=== PATIENT | female | born 1990 | race Caucasian/White ===

== ENCOUNTER → 2016-12-16 | Outpatient (CLI) | payer MEDICAID | END | disposition home or self-care (01) | LOC: MW.CHOBGYN 13:45 | PROVIDERS: ATTEND Advanced Practice Midwife | DX: L29.8 Other pruritus (principal) | CPT/HCPCS: 87480; 87510; 87660 ==

== ENCOUNTER → 2017-01-09 | Outpatient (CLI) | payer MEDICAID | END | disposition home or self-care (01) | LOC: MW.CHOBGYN 11:09 | PROVIDERS: ATTEND Advanced Practice Midwife | DX: Z34.90 Encounter for supervision of normal pregnancy, unspecified, unspecified trimester (principal) | CPT/HCPCS: 36415; 82950; 85027; 86850 ==

== ENCOUNTER 2017-01-16 17:59 | Outpatient (CLI) | payer MEDICAID ==
[2017-01-16] MEDS ORDERED: Acetaminophen 500 MG Tab PO ONE (18:18)
== END 2017-01-16 20:10 | disposition home or self-care (01) ==
LOC: MW.OBCHECK 17:59 → MW.OB 18:12 → MW.OBCHECK 20:10
PROVIDERS: ATTEND Obstetrics & Gynecology
DX: O99.89 Other specified diseases and conditions complicating pregnancy, childbirth and the puerperium (principal); R10.13 Epigastric pain; Z3A.29 29 weeks gestation of pregnancy
CPT/HCPCS: 59025; 81003; A9270

== ENCOUNTER → 2017-02-06 | Outpatient (CLI) | payer MEDICAID ==
--- NOTE | 2017-02-06 14:03 | US ---
Examination: Greater than 14 weeks transabdominal ultrasound with color Doppler and M-mode evaluatio n. HISTORY: Hydronephrosis FINDINGS: LMP is 06/24/2016 EVALUATION: Posterior placenta with a cephalic lie and grade 2. Visually amniotic fluid is wit hin normal limits. Amniotic fluid appears normal. Three-vessel cord is seen. The kidneys appear normal. BIOMETRY AND GESTATIONAL AGE: Biparietal diameter 8 cm. The abdominal circumference of 27.3 cm. The femoral length is 6.3 cm with head circumference of 20.5 cm. Gestational age is 31 weeks and 6 days. The expected date of delivery is approximately 04/04/2017. Fetus weight is 1839 grams. Overall the fetus is within the 21st percen tile. IMPRESSION: 1. Single active IU with cephalic fetus. Posterior placenta with grade 2, no placenta prev ia. 2. The kidneys appear unremarkable.
== END ==
LOC: MW.US 10:09
PROVIDERS: ATTEND Advanced Practice Midwife
DX: O26.833 Pregnancy related renal disease, third trimester (principal); N13.30 Unspecified hydronephrosis; Z3A.31 31 weeks gestation of pregnancy
CPT/HCPCS: 76815-26; 76816

== ENCOUNTER 2017-04-05 05:02 | Inpatient (IN) | payer MEDICAID ==
[2017-04-05] MEDS ORDERED: Oxytocin/Lactated Ringers 30 UNIT/500 ML BAG IV SCH ×2 (16:15)
[2017-04-05] MEDS ORDERED: Water For Irrigation,Sterile 1,000 ML Container IRR PRN (16:15)
[2017-04-05] MEDS ORDERED: Methylergonovine 0.2 MG/1 ML Amp IM PRN (16:15)
[2017-04-05] MEDS ORDERED: Carboprost Tromethamine 250 MCG/1 ML Amp IM PRN (16:15)
[2017-04-05] MEDS ORDERED: Sodium Chloride 0.9% 2.5 ML Syringe FLUSH PRN (16:15)
[2017-04-05] MEDS ORDERED: Lidocaine 1% 50 ML MDV INJECT PRN (16:15)
[2017-04-05] MEDS ORDERED: Misoprostol 200 MCG Tab PO PRN (16:15)
[2017-04-05] MEDS ORDERED: Sodium Chloride 0.9% 10 ML Syringe FLUSH PRN (16:15)
[2017-04-05] MEDS ORDERED: Terbutaline 1 MG/ML SDV SUBCUT PRN (16:15)
[2017-04-05] MEDS ORDERED: Nalbuphine 10 MG/1 ML Vial IVPUSH PRN (16:15)
[2017-04-05] MEDS: Lactated Ringers 1,000 ML IV SCH ×2 (17:30→23:50)
--- NOTE | 2017-04-05 17:58 | PCM.LDHP ---
L&D History of Present Illness - General Date of Service: 04/05/17 Admit Problem/Dx: Patient Status Order with Admit Dx/Problem 04/05/17 16:15 Patient Status [ADT] Routine Admission Diagnosis/Problem Admission Diagnosis/Problem 04/05/17 17:56 A: 26 yo EDC 03/31/2017 40 5/7wks O+, RI, GBS neg. 2/70/-2 soft midline. Source of Information: Patient History Limitations: Reports: No Limitations - History of Present Illness Improves with: Reports: None Worsens with: Reports: None Associated Symptoms: Reports: N - Related Data Allergies/Adverse Reactions: Allergies Allergy/AdvReac Type Severity Reaction Status Date / Time amoxicillin Allergy Rash Verified 03/15/16 09:25 Penicillins Allergy Rash Verified 03/15/16 09:25 Home Medications: Home Meds . [No Known Home Meds] 01/15/14 [History] Past Medical History - Past Health History Medical/Surgical History: Denies Medical/Surgical History Musculoskeletal History: Reports: None Psychiatric History: Reports: None - Infectious Disease History Infectious Disease History: Reports: None Social & Family History - Family History Family Medical History: Unobtainable - Tobacco Use Smoking Status *Q: Never Smoker Second Hand Smoke Exposure: No - Alcohol Use Days Per Week of Alcohol Use: 1 Number of Drinks Per Day: 2 Total Drinks Per Week: 2 - Recreational Drug Use Recreational Drug Use: No H&P Review of Systems - Review of Systems: Review Of Systems: See Below General: Reports: No Symptoms HEENT: Reports: No Symptoms Pulmonary: Reports: No Symptoms Cardiovascular: Reports: No Symptoms Gastrointestinal: Reports: No Symptoms Genitourinary: Reports: No Symptoms Musculoskeletal: Reports: No Symptoms Skin: Reports: No Symptoms Psychiatric: Reports: No Symptoms Neurological: Reports: No Symptoms Hematologic/Lymphatic: Reports: No Symptoms Immunologic: Reports: No Symptoms L&D Exam - Exam Exam: See Below - Vital Signs Weight: 80.286 kg - OB Specific Fundal Height In cm: 41 Presentation: Vertex Estimated Weight: 3700 - Garsia Score Garsia Score Cervix Position: Midposition Garsia Score Consistency: Soft Garsia Score Effacement: >80% Garsia Score Dilation: 1-2 cm Garsia Score 's Station: -2 Garsia Score Total: 8 - Exam General: Alert, Oriented, Cooperative HEENT: Hearing Intact Lungs: Normal Respiratory Effort Abdomen: Soft Rectal Exam: Deferred Genitourinary: Normal external exam, Normal bimanual exam, Cervical dilitation Back Exam: Normal Inspection Extremities: Normal Inspection, Edema (legs and feet +1-2) Skin: Warm, Dry, Intact Neurological: Reflexes Equal Bilateral, Normal Speech, Normal Tone Psychiatric: Alert, Normal Affect, Normal Mood - Patient Data Lab Results Last 24 hrs: Laboratory Results - last 24 hr 04/05/17 04/05/17 Range/Units 16:30 16:30 WBC 8.17 (4.0-11.0) K/uL RBC 4.10 L (4.30-5.90) M/uL Hgb 10.4 L (12.0-16.0) g/dL Hct 32.3 L (36.0-46.0) % MCV 78.8 L (80.0-98.0) fL MCH 25.4 L (27.0-32.0) pg MCHC 32.2 (31.0-37.0) g/dL RDW Std Deviation 42.5 (28.0-62.0) fl RDW Coeff of Joshua 15 (11.0-15.0) % Plt Count 297 (150-400) K/uL MPV 12.10 H (7.40-12.00) fL Nucleated RBC % 0.0 /100WBC Nucleated RBCs # 0 K/uL Blood Type A POSITIVE Antibody Screen NEGATIVE Result Diagrams: 04/05/17 16:30 - Problem List (1) Supervision of normal IUP (intrauterine ) in primigravida SNOMED Code(s): 84283715, 413703105, 708012128, 543505204 ICD Code: Z34.00 - ENCNTR FOR SUPRVSN OF NORMAL FIRST , UNSP TRIMESTER Status: Acute Priority: High Current Visit: Yes Qualifiers: Trimester: third trimester Qualified Code(s): Z34.03 - Encounter for supervision of normal first , third trimester Problem List Initiated/Reviewed/Updated: Yes Orders Last 24hrs: Active Orders 24 hr Category Date Time Status Patient Status [ADT] Routine ADT 04/05/17 16:15 Active Bedrest Bathroom Privileges [RC] ASDIRECTED Care 04/05/17 16:15 Active Communication Order [RC] ASDIRECTED Care 04/05/17 16:15 Active Communication Order [RC] ASDIRECTED Care 04/05/17 16:15 Active Heart Tones [RC] CONTINUOUS Care 04/05/17 16:15 Active Non Stress Test [RC] PER UNIT ROUTINE Care 04/05/17 16:15 Active May Shower [RC] ASDIRECTED Care 04/05/17 16:15 Active Notify Provider [RC] PRN Care 04/05/17 16:15 Active Notify Provider [RC] PRN Care 04/05/17 16:15 Active Oxygen Therapy [RC] ASDIRECTED Care 04/05/17 16:15 Active Peripheral IV Care [RC] . DIRECTED Care 04/05/17 16:15 Active Up ad Sangeetha [RC] ASDIRECTED Care 04/05/17 16:15 Active Vaginal Exam [RC] PRN Care 04/05/17 16:15 Active Vaginal Exam [RC] PRN Care 04/05/17 16:15 Active Vital Signs [RC] PER UNIT ROUTINE Care 04/05/17 16:15 Active Vital Signs [RC] PER UNIT ROUTINE Care 04/05/17 16:15 Active Regular Diet [DIET] Diet 04/05/17 Dinner Active Carboprost Tromethamine [Hemabate DS] Med 04/05/17 16:15 Active 250 mcg IM ASDIRECTED PRN Lactated Ringers [Ringers, Lactated] 1,000 ml Med 04/05/17 16:15 Active IV ASDIRECTED Lidocaine 1% [Xylocaine 1%] Med 04/05/17 16:15 Active 50 ml INJECT .ONCE PRN Methylergonovine [Methergine] Med 04/05/17 16:15 Active 0.2 mg IM ASDIRECTED PRN Misoprostol [Cytotec] Med 04/05/17 16:15 Active 200 mcg PO .ONCE PRN Nalbuphine [Nubain] Med 04/05/17 16:15 Active 10 mg IVPUSH Q1H PRN Oxytocin/Lactated Ringers [Pitocin in LR 30 Units/500 Med 04/05/17 16:15 Active ML] 30 unit in 500 ml IV TITRATE Oxytocin/Lactated Ringers [Pitocin in LR 30 Units/500 Med 04/05/17 16:15 Active ML] 30 unit in 500 ml IV TITRATE Sodium Chloride 0.9% [Saline Flush] Med 04/05/17 16:15 Active 10 ml FLUSH ASDIRECTED PRN Sodium Chloride 0.9% [Saline Flush] Med 04/05/17 16:15 Active 2.5 ml FLUSH ASDIRECTED PRN Terbutaline [Brethine] Med 04/05/17 16:15 Active 0.25 mg SUBCUT ASDIRECTED PRN Water For Irrigation,Sterile [Sterile Water for Med 04/05/17 16:15 Active Irrigation] 1,000 ml IRR ASDIRECTED PRN Scalp Electrode [WOMSER] Per Unit Routine Oth 04/05/17 16:15 Ordered Medication Administration Instruction [OM.PC] Q3H Oth 04/05/17 16:15 Ordered Peripheral IV Insertion Adult [OM.PC] Routine Oth 04/05/17 16:15 Ordered Resuscitation Status Routine Resus Stat 04/05/17 16:15 Ordered Medication Orders Carboprost Tromethamine (Hemabate Ds) 250 mcg IM ASDIRECTED PRN PRN Reason: Post Hemorrhage Lactated Ringer's (Ringers, Lactated) 1,000 mls @ 150 mls/hr IV ASDIRECTED MURALI Last Admin: 04/05/17 17:30 Dose: 150 mls/hr Oxytocin/Lactated Ringer's (Pitocin In Lr 30 Units/500 Ml) 30 unit in 500 mls @ 250 mls/hr IV TITRATE MURALI PRN Reason: 250 MUNITS/MIN Stop: 04/05/17 18:14 Oxytocin/Lactated Ringer's (Pitocin In Lr 30 Units/500 Ml) 30 unit in 500 mls @ 2 mls/hr IV TITRATE MURALI; 2 MUNITS/MIN PRN Reason: Protocol Last Admin: 04/05/17 17:50 Dose: 2 munits/min, 2 mls/hr Lidocaine HCl (Xylocaine 1%) 50 ml INJECT .ONCE PRN PRN Reason: Laceration repair Methylergonovine Maleate (Methergine) 0.2 mg IM ASDIRECTED PRN PRN Reason: Post Hemorrhage Misoprostol (Cytotec) 200 mcg PO .ONCE PRN PRN Reason: Post Hemorrhage Nalbuphine HCl (Nubain) 10 mg IVPUSH Q1H PRN PRN Reason: Pain (severe 7-10) Stop: 04/05/17 18:16 Sodium Chloride (Saline Flush) 10 ml FLUSH ASDIRECTED PRN PRN Reason: Keep Vein Open Sodium Chloride (Saline Flush) 2.5 ml FLUSH ASDIRECTED PRN PRN Reason: Keep Vein Open Sterile Water (Sterile Water For Irrigation) 1,000 ml IRR ASDIRECTED PRN PRN Reason: delivery Terbutaline Sulfate (Brethine) 0.25 mg SUBCUT ASDIRECTED PRN PRN Reason: Tacysystole Assessment/Plan Comment:: IOL: A: 26 yo EDC 03/31/2017 40 5/7wks O+, RI, GBS neg. /70/-2 soft midline. P: Admit to L&D, pitocin per protocol, anticipate . Dr Clemens updated on pt status.
--- NOTE | 2017-04-05 23:58 | PCM.PREANE ---
Preanesthetic Assessment - Anesthesia/Transfusion/Family Hx Anesthesia History: No Prior Anesthesia Transfusion History: No Prior Transfusion(s) - Review of Systems General: No Symptoms Pulmonary: No Symptoms Cardiovascular: No Symptoms Gastrointestinal: No symptoms Neurological: No Symptoms - Physical Assessment Height: 5 ft 4 in Weight: 80.286 kg ASA Class: 2 Mental Status: Alert & Oriented x3 Airway Class: Mallampati = 2 Dentition: Reports: Normal Dentition Thyro-Mental Finger Breadths: 3 Mouth Opening Finger Breadths: 3 ROM/Head Extension: Full Lungs: Clear to auscultation, Normal respiratory effort Cardiovascular: Regular Rate, Regular Rhythm - Lab Values: Laboratory Last Values WBC 8.17 K/uL (4.0-11.0) 04/05/17 16:30 RBC 4.10 M/uL (4.30-5.90) L 04/05/17 16:30 Hgb 10.4 g/dL (12.0-16.0) L 04/05/17 16:30 Hct 32.3 % (36.0-46.0) L 04/05/17 16:30 MCV 78.8 fL (80.0-98.0) L 04/05/17 16:30 MCH 25.4 pg (27.0-32.0) L 04/05/17 16:30 MCHC 32.2 g/dL (31.0-37.0) 04/05/17 16:30 RDW Std Deviation 42.5 fl (28.0-62.0) 04/05/17 16:30 RDW Coeff of Joshua 15 % (11.0-15.0) 04/05/17 16:30 Plt Count 297 K/uL (150-400) 04/05/17 16:30 MPV 12.10 fL (7.40-12.00) H 04/05/17 16:30 Nucleated RBC % 0.0 /100WBC 04/05/17 16:30 Nucleated RBCs # 0 K/uL 04/05/17 16:30 Blood Type A POSITIVE 04/05/17 16:30 Antibody Screen NEGATIVE 04/05/17 16:30 - Allergies Allergies/Adverse Reactions: Allergies Allergy/AdvReac Type Severity Reaction Status Date / Time amoxicillin Allergy Rash Verified 03/15/16 09:25 Penicillins Allergy Rash Verified 03/15/16 09:25 - Acknowledgements Anesthesia Type Planned: Epidural Pt an Appropriate Candidate for the Planned Anesthesia: Yes Alternatives and Risks of Anesthesia Discussed w Pt/Guardian: Yes Pt/Guardian Understands and Agrees with Anesthesia Plan: Yes PreAnesthesia Questionnaire - Past Health History Medical/Surgical History: Denies Medical/Surgical History HEENT History: Reports: None Cardiovascular History: Reports: None Respiratory History: Reports: None Gastrointestinal History: Reports: GERD Genitourinary History: Reports: None CLIENT EXPERIENCE CONSULTANT History: Reports: : 2 Para: 0 LMP (Approximate): Musculoskeletal History: Reports: None Neurological History: Reports: None Psychiatric History: Reports: None Endocrine/Metabolic History: Reports: Obesity/BMI 30+ Hematologic History: Reports: Anemia Immunologic History: Reports: None Oncologic (Cancer) History: Reports: None Dermatologic History: Reports: None - Infectious Disease History Infectious Disease History: Reports: None - SUBSTANCE USE Smoking Status *Q: Never Smoker Second Hand Smoke Exposure: No Days Per Week of Alcohol Use: 1 Number of Drinks Per Day: 2 Total Drinks Per Week: 2 Recreational Drug Use History: No - HOME MEDS Home Medications: Home Meds . [No Known Home Meds] 01/15/14 [History] - CURRENT (IN HOUSE) MEDS Current Meds: Current Medications Carboprost Tromethamine (Hemabate Ds) 250 mcg IM ASDIRECTED PRN PRN Reason: Post Hemorrhage Lactated Ringer's (Ringers, Lactated) 1,000 mls @ 150 mls/hr IV ASDIRECTED MURALI Last Admin: 04/05/17 23:50 Dose: 999 mls/hr Oxytocin/Lactated Ringer's (Pitocin In Lr 30 Units/500 Ml) 30 unit in 500 mls @ 2 mls/hr IV TITRATE MURALI; 2 MUNITS/MIN PRN Reason: Protocol Last Titration: 04/05/17 19:01 Dose: 6 munits/min, 6 mls/hr Lidocaine HCl (Xylocaine 1%) 50 ml INJECT .ONCE PRN PRN Reason: Laceration repair Methylergonovine Maleate (Methergine) 0.2 mg IM ASDIRECTED PRN PRN Reason: Post Hemorrhage Misoprostol (Cytotec) 200 mcg PO .ONCE PRN PRN Reason: Post Hemorrhage Sodium Chloride (Saline Flush) 10 ml FLUSH ASDIRECTED PRN PRN Reason: Keep Vein Open Sodium Chloride (Saline Flush) 2.5 ml FLUSH ASDIRECTED PRN PRN Reason: Keep Vein Open Sterile Water (Sterile Water For Irrigation) 1,000 ml IRR ASDIRECTED PRN PRN Reason: delivery Terbutaline Sulfate (Brethine) 0.25 mg SUBCUT ASDIRECTED PRN PRN Reason: Tacysystole Discontinued Medications Oxytocin/Lactated Ringer's (Pitocin In Lr 30 Units/500 Ml) 30 unit in 500 mls @ 250 mls/hr IV TITRATE MURALI PRN Reason: 250 MUNITS/MIN Stop: 04/05/17 18:14 Nalbuphine HCl (Nubain) 10 mg IVPUSH Q1H PRN PRN Reason: Pain (severe 7-10) Stop: 04/05/17 18:16
[2017-04-06] MEDS ORDERED: fentaNYL 100 MCG/2 ML SDV ONE (00:05)
[2017-04-06] MEDS ORDERED: Ropivacaine HCl/PF 100 ML ONE ×2 (00:06→00:24)
[2017-04-06] MEDS: Lactated Ringers 1,000 ML IV SCH (00:21)
--- NOTE | 2017-04-06 01:18 | PCM.SN ---
- Free Text/Narrative Note: Called by nursing for PIV start as they have 4 failed attempts. 20g PIV started to Rt upper arm. Flushes and draws with ease.
--- NOTE | 2017-04-06 01:20 | PCM.SN ---
- Free Text/Narrative Note: I was re-notified by nursing that the patient pulled out her IV during delivery. 20g PIV started to Lt hand, secured with tape and tegaderm. Flushes and draws easily.
[2017-04-06] MEDS ORDERED: Benzocaine/Menthol 20%-0.5% Spray 78 GM Cannister TOP PRN (05:25)
[2017-04-06] MEDS ORDERED: oxyCODONE 5 MG Tab PO PRN (05:25)
[2017-04-06] MEDS ORDERED: Lanolin 100% Cream 7 GM Tube TOP PRN (05:25)
[2017-04-06] MEDS ORDERED: Docusate Sodium 100 MG Cap PO PRN (05:25)
[2017-04-06] MEDS ORDERED: Acetaminophen 500 MG Tab PO PRN ×2 (05:25)
[2017-04-06] MEDS ORDERED: Witch Hazel Medicated Pads 40/Jar TOP PRN (05:25)
[2017-04-06] MEDS ORDERED: Ibuprofen 400 MG Tab PO PRN (05:25)
[2017-04-06] MEDS ORDERED: Bisacodyl 10 MG Supp RECTAL PRN (05:25)
--- NOTE | 2017-04-06 05:39 | PCM.DEL ---
L & D Note - General Info Date of Service: 04/06/17 Mother's Due Date: 03/31/17 - Delivery Note Labor: induced by oxytocin Delivery Outcome: Livebirth Delivery Method: Spontaneous Vaginal Delivery Delivery Mode: Spontaneous Presentation: Right Occiput Posterior (ROP) Nuchal Cord: None Anesthesia Type: Epidural Amniotic Fluid Description: Clear Episiotomy Type: None Laceration: none Placenta: intact, spontaneous Cord: 3 vessels Estimated Blood Loss: 100 Resuscitation Needed: No Cordell: Stimulated Score 1 min: 9 Score 5 min: 9 Second Stage Interventions: Reports: Pushing Effectively, Pushing, Pulls Own Legs Back Delivery Comments (Free Text/Narrative):: of viable girl over intact perineum. Head delivered ROP with good pushing, shoulders and body followed easily. Infant to mothers abd with RN at bs, spont cry. Delayed cord clamping. Pitocin to IVF. Cord clamped and cut by Partha. Cord blood collected. Placenta delivered grossly intact. Inspection noted intact perineum. EBL 100cc. APGARS 9/9, wt pending bonding. counts correct. Mother and baby left in stable condition for recovery. Induction Criteria - Garsia Score Garsia Score Dilation: 1-2 cm Garsia Score Effacement: 60-70% Garsia Score Infant's Station: -2 Garsia Score Consistency: Soft Garsia Score Cervix Position: Midposition Garsia Score Total: 7 Garsia Score Presenting Part: Reports: Cephalic - Induction Gestational Age >/= 39 wks: Yes Estimated pelvis: Reports: Adequate Reassuring monitoring strip: Yes Absence of tachy systole: Yes - General Info Date of Service: 04/06/17 Functional Status: Reports: pain controlled - Review of Systems General: Reports: No Symptoms HEENT: Reports: no symptoms Pulmonary: Reports: no symptoms Cardiovascular: Reports: No Symptoms Gastrointestinal: Reports: No symptoms Genitourinary: Reports: no symptoms Musculoskeletal: Reports: no symptoms Skin: Reports: no symptoms Neurological: Reports: No Symptoms Psychiatric: Reports: no symptoms - Patient Data Weight - most recent: 80.286 kg Lab Results last 24 hrs: Laboratory Results - last 24 hr 04/05/17 04/05/17 Range/Units 16:30 16:30 WBC 8.17 (4.0-11.0) K/uL RBC 4.10 L (4.30-5.90) M/uL Hgb 10.4 L (12.0-16.0) g/dL Hct 32.3 L (36.0-46.0) % MCV 78.8 L (80.0-98.0) fL MCH 25.4 L (27.0-32.0) pg MCHC 32.2 (31.0-37.0) g/dL RDW Std Deviation 42.5 (28.0-62.0) fl RDW Coeff of Joshua 15 (11.0-15.0) % Plt Count 297 (150-400) K/uL MPV 12.10 H (7.40-12.00) fL Nucleated RBC % 0.0 /100WBC Nucleated RBCs # 0 K/uL Blood Type A POSITIVE Antibody Screen NEGATIVE Med Orders - Current: Current Medications Acetaminophen (Tylenol Extra Strength) 500 mg PO Q4H PRN PRN Reason: Pain Acetaminophen (Tylenol Extra Strength) 1,000 mg PO Q4H PRN PRN Reason: Pain Benzocaine/Menthol (Dermoplast Pain Relief 20%-0.5% [place]) 78 gm TOP ASDIRECTED PRN PRN Reason: Perineal Comfort Measure Bisacodyl (Dulcolax) 10 mg RECTAL .ONCE PRN PRN Reason: Constipation Docusate Sodium (Colace) 100 mg PO BID PRN PRN Reason: Constipation Emollient Ointment (Lansinoh Hpa) 0 gm TOP ASDIRECTED PRN PRN Reason: Sore Nipples Ibuprofen (Motrin) 400 mg PO Q4H PRN PRN Reason: Pain Ibuprofen (Motrin) 800 mg PO Q6H PRN PRN Reason: Pain Oxycodone HCl (Oxycodone) 5 mg PO Q2H PRN PRN Reason: Pain Witch Sarahy (Tucks) 1 pad TOP ASDIRECTED PRN PRN Reason: comfort care Discontinued Medications Carboprost Tromethamine (Hemabate Ds) 250 mcg IM ASDIRECTED PRN PRN Reason: Post Hemorrhage Fentanyl (Sublimaze) Confirm Administered Dose 100 mcg .ROUTE .STK-MED ONE Stop: 04/06/17 00:06 Lactated Ringer's (Ringers, Lactated) 1,000 mls @ 150 mls/hr IV ASDIRECTED MURALI Last Admin: 04/06/17 00:21 Dose: 999 mls/hr Oxytocin/Lactated Ringer's (Pitocin In Lr 30 Units/500 Ml) 30 unit in 500 mls @ 250 mls/hr IV TITRATE MURALI PRN Reason: 250 MUNITS/MIN Stop: 04/05/17 18:14 Oxytocin/Lactated Ringer's (Pitocin In Lr 30 Units/500 Ml) 30 unit in 500 mls @ 2 mls/hr IV TITRATE MURALI; 2 MUNITS/MIN PRN Reason: Protocol Last Titration: 04/05/17 19:01 Dose: 6 munits/min, 6 mls/hr Ropivacaine (Naropin 0.2%) Confirm Administered Dose 100 mls @ as directed .ROUTE .STK-MED ONE Stop: 04/06/17 00:07 Ropivacaine (Naropin 0.2%) Confirm Administered Dose 100 mls @ as directed .ROUTE .ST-MED ONE Stop: 04/06/17 00:25 Lidocaine HCl (Xylocaine 1%) 50 ml INJECT .ONCE PRN PRN Reason: Laceration repair Methylergonovine Maleate (Methergine) 0.2 mg IM ASDIRECTED PRN PRN Reason: Post Hemorrhage Misoprostol (Cytotec) 200 mcg PO .ONCE PRN PRN Reason: Post Hemorrhage Nalbuphine HCl (Nubain) 10 mg IVPUSH Q1H PRN PRN Reason: Pain (severe 7-10) Stop: 04/05/17 18:16 Sodium Chloride (Saline Flush) 10 ml FLUSH ASDIRECTED PRN PRN Reason: Keep Vein Open Sodium Chloride (Saline Flush) 2.5 ml FLUSH ASDIRECTED PRN PRN Reason: Keep Vein Open Sterile Water (Sterile Water For Irrigation) 1,000 ml IRR ASDIRECTED PRN PRN Reason: delivery Terbutaline Sulfate (Brethine) 0.25 mg SUBCUT ASDIRECTED PRN PRN Reason: Tacysystole - Exam General: alert, oriented, cooperative, no acute distress Lungs: Normal respiratory effort Abdomen: soft, no tenderness, no distension (Female) Exam: Normal External Exam, Normal Bimanual Exam, Vaginal Bleeding Back Exam: Full Range of Motion Extremities: no edema, no tenderness/swelling, no calf tenderness Skin: warm, dry, intact Wound/Incisions: healing well Neurological: no new focal deficit, normal speech, normal tone Psy/Mental Status: alert, normal affect, normal mood - Problem List & Annotations (1) Supervision of normal IUP (intrauterine ) in primigravida SNOMED Code(s): 29681678, 671873258, 528369231, 120279938 Code(s): Z34.00 - ENCNTR FOR SUPRVSN OF NORMAL FIRST , UNSP TRIMESTER Status: Acute Priority: High Current Visit: Yes Qualifiers: Trimester: third trimester Qualified Code(s): Z34.03 - Encounter for supervision of normal first , third trimester (2) (normal spontaneous vaginal delivery) SNOMED Code(s): 06379497 Code(s): O80 - ENCOUNTER FOR FULL-TERM UNCOMPLICATED DELIVERY Status: Acute Priority: Medium Current Visit: Yes - Problem List Review Problem List Initiated/Reviewed/Updated: Yes - My Orders Last 24 Hours: My Active Orders 04/05/17 16:15 Bedrest Bathroom Privileges [RC] ASDIRECTED Communication Order [RC] ASDIRECTED May Shower [RC] ASDIRECTED Notify Provider [RC] PRN Oxygen Therapy [RC] ASDIRECTED Up ad Sangeetha [RC] ASDIRECTED Vital Signs [RC] PER UNIT ROUTINE 04/06/17 05:25 May Shower [RC] ASDIRECTED Up ad Sangeetha [RC] ASDIRECTED Vital Signs [RC] PER UNIT ROUTINE Acetaminophen [Tylenol Extra Strength] 1,000 mg PO Q4H PRN Acetaminophen [Tylenol Extra Strength] 500 mg PO Q4H PRN Benzocaine/Menthol [Dermoplast Pain Relief 20%-0.5% [place]] 78 gm TOP ASDIRECTED PRN Bisacodyl [Dulcolax] 10 mg RECTAL .ONCE PRN Docusate Sodium [Colace] 100 mg PO BID PRN Ibuprofen [Motrin] 400 mg PO Q4H PRN Ibuprofen [Motrin] 800 mg PO Q6H PRN Lanolin [Lansinoh HPA] See Dose Instructions TOP ASDIRECTED PRN Witch Sarahy [Tucks] 1 pad TOP ASDIRECTED PRN oxyCODONE 5 mg PO Q2H PRN Assess Lochia [WOMSER] Per Unit Routine Assess Uterine Involution [WOMSER] Per Unit Routine Peripheral IV Discontinue [OM.PC] Routine Resuscitation Status Routine 04/06/17 05:26 Patient Status [ADT] Routine 04/06/17 Breakfast Regular Diet [DIET] - Assessment Assessment:: Delivery A: viable healthy girl, APGARS 99, Wt: pending bonding. Intact perineum, EBL 100cc, Lochia scant to small. Bonding well with infant. - Plan Plan:: IOL: A: 26 yo EDC 03/31/2017 40 5/7wks O+, RI, GBS neg. 2/70/-2 soft midline. P: Admit to L&D, pitocin per protocol, anticipate . Dr Clemens updated on pt status. Delivery: P: Routine pp plan of care.
[2017-04-06] MEDS: Ibuprofen 800 MG Tab PO PRN ×2 (06:17→21:37)
--- NOTE | 2017-04-07 08:14 | PCM.DCSUM1 ---
Discharge Summary - Hospital Course Free Text/Narrative:: Discharge home with . Follow up 6 weeks for post or sooner if needed. - Discharge Data Discharge Date: 04/07/17 Discharge Disposition: Home, Self-Care 01 Condition: Good - Discharge Diagnosis/Problem(s) (1) Supervision of normal IUP (intrauterine ) in primigravida SNOMED Code(s): 06353071, 939881821, 659188842, 656578040 ICD Code: Z34.00 - ENCNTR FOR SUPRVSN OF NORMAL FIRST , UNSP TRIMESTER Status: Acute Priority: High Current Visit: Yes Qualifiers: Trimester: third trimester Qualified Code(s): Z34.03 - Encounter for supervision of normal first , third trimester (2) (normal spontaneous vaginal delivery) SNOMED Code(s): 89178715 ICD Code: O80 - ENCOUNTER FOR FULL-TERM UNCOMPLICATED DELIVERY Status: Acute Priority: Medium Current Visit: Yes - Patient Instructions Diet: Usual Diet as Tolerated Activity: As Tolerated, Rest and Relax Today Driving: Do Not Drive Showering/Bathing: May Shower Notify Provider of: Fever, Increased Pain, Swelling and Redness, Nausea and/or Vomiting Other/Special Instructions: Discharge home with . Follow up 6 weeks for post or sooner if needed. - Discharge Plan Home Medications: Home Meds . [No Known Home Meds] 01/15/14 [History] - General Info Date of Service: 04/07/17 Admission Dx/Problem (Free Text: Patient Status Order with Admit Dx/Problem 04/05/17 16:15 Patient Status [ADT] Routine Admission Diagnosis/Problem Admission Diagnosis/Problem 04/05/17 17:56 A: 26 yo EDC 03/31/2017 40 5/7wks O+, RI, GBS neg. 2/70/-2 soft midline. Functional Status: Reports: pain controlled, tolerating diet, ambulating, urinating - Review of Systems General: Reports: No Symptoms HEENT: Reports: no symptoms Pulmonary: Reports: no symptoms Cardiovascular: Reports: No Symptoms Gastrointestinal: Reports: No symptoms Genitourinary: Reports: no symptoms Musculoskeletal: Reports: no symptoms Skin: Reports: no symptoms Neurological: Reports: No Symptoms Psychiatric: Reports: no symptoms - Patient Data Vitals - Most Recent: Last Vital Signs Temp 36.8 C 04/07/17 04:00 Pulse 83 04/07/17 04:00 Resp 16 04/07/17 04:00 BP 119/67 04/07/17 04:00 Pulse Ox 96 04/07/17 04:00 Weight - Most Recent: 80.286 kg Med Orders - Current: Current Medications Acetaminophen (Tylenol Extra Strength) 500 mg PO Q4H PRN PRN Reason: Pain Acetaminophen (Tylenol Extra Strength) 1,000 mg PO Q4H PRN PRN Reason: Pain Benzocaine/Menthol (Dermoplast Pain Relief 20%-0.5% Leslie) 78 gm TOP ASDIRECTED PRN PRN Reason: Perineal Comfort Measure Bisacodyl (Dulcolax) 10 mg RECTAL .ONCE PRN PRN Reason: Constipation Docusate Sodium (Colace) 100 mg PO BID PRN PRN Reason: Constipation Emollient Ointment (Lansinoh Hpa) 0 gm TOP ASDIRECTED PRN PRN Reason: Sore Nipples Ibuprofen (Motrin) 400 mg PO Q4H PRN PRN Reason: Pain Ibuprofen (Motrin) 800 mg PO Q6H PRN PRN Reason: Pain Last Admin: 04/06/17 21:37 Dose: 800 mg Oxycodone HCl (Oxycodone) 5 mg PO Q2H PRN PRN Reason: Pain Witch Sarahy (Tucks) 1 pad TOP ASDIRECTED PRN PRN Reason: comfort care Discontinued Medications Carboprost Tromethamine (Hemabate Ds) 250 mcg IM ASDIRECTED PRN PRN Reason: Post Hemorrhage Fentanyl (Sublimaze) Confirm Administered Dose 100 mcg .ROUTE .STK-MED ONE Stop: 04/06/17 00:06 Lactated Ringer's (Ringers, Lactated) 1,000 mls @ 150 mls/hr IV ASDIRECTED MURALI Last Admin: 04/06/17 00:21 Dose: 999 mls/hr Oxytocin/Lactated Ringer's (Pitocin In Lr 30 Units/500 Ml) 30 unit in 500 mls @ 250 mls/hr IV TITRATE MURALI PRN Reason: 250 MUNITS/MIN Stop: 04/05/17 18:14 Oxytocin/Lactated Ringer's (Pitocin In Lr 30 Units/500 Ml) 30 unit in 500 mls @ 2 mls/hr IV TITRATE MURALI; 2 MUNITS/MIN PRN Reason: Protocol Last Titration: 04/05/17 19:01 Dose: 6 munits/min, 6 mls/hr Ropivacaine (Naropin 0.2%) Confirm Administered Dose 100 mls @ as directed .ROUTE .STK-MED ONE Stop: 04/06/17 00:07 Ropivacaine (Naropin 0.2%) Confirm Administered Dose 100 mls @ as directed .ROUTE .STK-MED ONE Stop: 04/06/17 00:25 Lidocaine HCl (Xylocaine 1%) 50 ml INJECT .ONCE PRN PRN Reason: Laceration repair Methylergonovine Maleate (Methergine) 0.2 mg IM ASDIRECTED PRN PRN Reason: Post Hemorrhage Misoprostol (Cytotec) 200 mcg PO .ONCE PRN PRN Reason: Post Hemorrhage Nalbuphine HCl (Nubain) 10 mg IVPUSH Q1H PRN PRN Reason: Pain (severe 7-10) Stop: 04/05/17 18:16 Sodium Chloride (Saline Flush) 10 ml FLUSH ASDIRECTED PRN PRN Reason: Keep Vein Open Sodium Chloride (Saline Flush) 2.5 ml FLUSH ASDIRECTED PRN PRN Reason: Keep Vein Open Sterile Water (Sterile Water For Irrigation) 1,000 ml IRR ASDIRECTED PRN PRN Reason: delivery Terbutaline Sulfate (Brethine) 0.25 mg SUBCUT ASDIRECTED PRN PRN Reason: Tacysystole - Exam General: Reports: alert, oriented, cooperative, no acute distress Lungs: Reports: Normal respiratory effort (Female) Exam: Vaginal Bleeding Rectal (Female) Exam: Deferred Back Exam: Reports: Full Range of Motion Extremities: Reports: no edema, no tenderness/swelling, no calf tenderness Skin: Reports: warm, dry, intact Wound/Incisions: Reports: healing well Neurological: Reports: no new focal deficit, normal speech, normal tone Psy/Mental Status: Reports: alert, normal affect, normal mood *Q Meaningful Use (DIS) - VTE *Q VTE Criteria *Q: - Stroke *Q Stroke Criteria *Q: - AMI *Q AMI Criteria *Q:
[2017-04-07 09:08] VITALS: BP 118/57
--- NOTE | 2017-04-07 21:44 | PCM48HPAN ---
Post Anesthesia Note - EVALUATION WITHIN 48HRS OF ANESTHETIC Vital Signs in Normal Range: Yes Patient Participated in Evaluation: Yes Respiratory Function Stable: Yes Airway Patent: Yes Cardiovascular Function Stable: Yes Hydration Status Stable: Yes Pain Control Satisfactory: Yes Nausea and Vomiting Control Satisfactory: Yes Mental Status Recovered: Yes
== END 2017-04-07 10:30 | disposition home or self-care (01) | DRG 775 ==
LOC: MW.OB 05:02 → OBSVTOIN 04-06 05:02
PROVIDERS: ADMIT Obstetrics & Gynecology; ATTEND Advanced Practice Midwife
PROC: 10E0XZZ Delivery of Products of Conception, External Approach (ICD-10-PCS; principal; 2017-04-06)
PROC: 3E033VJ Introduction of Other Hormone into Peripheral Vein, Percutaneous Approach (ICD-10-PCS; 2017-04-06)
DX: O80 Encounter for full-term uncomplicated delivery (principal); Z3A.40 40 weeks gestation of pregnancy; Z37.0 Single live birth
CPT/HCPCS: 36415; 59025; 85027; 86850; 86900; 86901; A9270-GY; J2795; J7120

== ENCOUNTER 2018-10-04 09:42 | Emergency (ER) | payer BC, MEDICAID ==
[2018-10-04] MEDS ORDERED: Benzocaine 20% Topical Spray UD MUCMEM ONE (10:11)
[2018-10-04] MEDS ORDERED: Lidocaine 2% Viscous Solution 15 ML Cup PO ONE (10:11)
--- NOTE | 2018-10-04 10:16 | EDM.PDOC ---
ED HPI GENERAL MEDICAL PROBLEM - General Chief Complaint: General Stated Complaint: SINUS INFECTION Time Seen by Provider: 10/04/18 09:56 Source of Information: Reports: Patient History Limitations: Reports: No Limitations - History of Present Illness INITIAL COMMENTS - FREE TEXT/NARRATIVE: History of present illness: []Patient has poor dentition and left-sided dental pain for more than 4 days. Weeks and was treated with Keflex by her OB doctor for sinusitis. She continues to have dental pain without fevers, chills, nausea, vomiting. She denies any abdominal pain, vaginal bleeding or leakage. Review of systems: As per history of present illness and below otherwise all systems reviewed and negative. Past medical history: As per history of present illness and as reviewed below otherwise noncontributory. Surgical history: As per history of present illness and as reviewed below otherwise noncontributory. Social history: No reported history of drug or alcohol abuse. Family history: As per history of present illness and as reviewed below otherwise noncontributory. Physical exam: General: Well developed, well nourished in NAD HEENT: Atraumatic, normocephalic, pupils reactive, negative for conjunctival pallor or scleral icterus, mucous membranes moist, throat clear, neck supple, nontender, trachea midline. No sinus tenderness to palpation. TMs clear no erythema, poor dentition with multiple caries no gingival erythema, edema or drainage Lungs: Clear to auscultation, breath sounds equal bilaterally, chest nontender. Heart: S1S2, regular, negative for clicks, rubs, or JVD. Abdomen: NABS, Soft, 29 week OB abdomen, nontender. Negative for masses or hepatosplenomegaly. Negative for costovertebral tenderness. Pelvis: Stable nontender. Genitourinary: Deferred. Rectal: Deferred. Extremities: Atraumatic, negative for cords or calf pain. Neurovascular unremarkable. Neuro: Awake, alert, oriented. Cranial nerves II through XII unremarkable. Cerebellum unremarkable. Motor and sensory unremarkable throughout. Exam nonfocal. Skin:warm and dry Diagnostics: None Therapeutics: Dental balls ED Course: Remarkable Impression: Dental pain Prescriptions: None Plan: Follow-up with primary care. Definitive disposition and diagnosis as appropriate pending reevaluation and review of above. 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: , 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 Musculoskeletal History: Reports: None Neurological History: Reports: None Psychiatric History: Reports: None Endocrine/Metabolic History: Reports: Obesity/BMI 30+ Hematologic History: Reports: Anemia Immunologic History: Reports: None Oncologic (Cancer) History: Reports: None Dermatologic History: Reports: None - Infectious Disease History Infectious Disease History: Reports: Chicken Pox Social & Family History - Family History Family Medical History: Unobtainable - Tobacco Use Smoking Status *Q: Never Smoker - Caffeine Use Caffeine Use: Reports: Coffee - Recreational Drug Use Recreational Drug Use: No ED ROS GENERAL - Review of Systems Review Of Systems: ROS reveals no pertinent complaints other than HPI. ED EXAM, GENERAL - Physical Exam Exam: See Below (See history of present illness) Course - Vital Signs Last Recorded V/S: Last Vital Signs Temp 97.9 F 10/04/18 09:57 Pulse 91 10/04/18 09:57 Resp 16 10/04/18 09:57 BP 143/79 H 10/04/18 09:57 Pulse Ox 97 10/04/18 09:57 - Orders/Labs/Meds Orders: Active Orders 24 hr Category Date Time Status Benzocaine [Hurricaine One 20%] Med 10/04/18 10:11 Once 2 each MUCMEM ONETIME ONE Lidocaine 2% [Xylocaine 2% Viscous] Med 10/04/18 10:11 Once 15 ml PO ONETIME ONE Departure - Departure Time of Disposition: 10:15 Disposition: Home, Self-Care 01 Condition: Good Clinical Impression: Dental implant pain - Discharge Information *PRESCRIPTION DRUG MONITORING PROGRAM REVIEWED*: No *COPY OF PRESCRIPTION DRUG MONITORING REPORT IN PATIENT CASSIA: No Referrals: PCP,None [Primary Care Provider] - Additional Instructions: The following information is given to patients seen in the emergency department who are being discharged to home. This information is to outline your options for follow-up care. We provide all patients seen in our emergency department with a follow-up referral. The need for follow-up, as well as the timing and circumstances, are variable depending upon the specifics of your emergency department visit. If you don't have a primary care physician on staff, we will provide you with a referral. We always advise you to contact your personal physician following an emergency department visit to inform them of the circumstance of the visit and for follow-up with them and/or the need for any referrals to a consulting specialist. The emergency department will also refer you to a specialist when appropriate. This referral assures that you have the opportunity for follow-up care with a specialist. All of these measure are taken in an effort to provide you with optimal care, which includes your follow-up. Under all circumstances we always encourage you to contact your private physician who remains a resource for coordinating your care. When calling for follow-up care, please make the office aware that this follow-up is from your recent emergency room visit. If for any reason you are refused follow-up, please contact the [facility] at and asked to speak to the emergency department charge nurse. [facility] [address] [place] [address] - My Orders Last 24 Hours: My Active Orders 10/04/18 10:11 Benzocaine [Hurricaine One 20%] 2 each MUCMEM ONETIME ONE Lidocaine 2% [Xylocaine 2% Viscous] 15 ml PO ONETIME ONE - Assessment/Plan Last 24 Hours: My Active Orders 10/04/18 10:11 Benzocaine [Hurricaine One 20%] 2 each MUCMEM ONETIME ONE Lidocaine 2% [Xylocaine 2% Viscous] 15 ml PO ONETIME ONE
[2018-10-04 10:20] VITALS: BP 143/79
== END 2018-10-04 10:24 | disposition home or self-care (01) ==
LOC: MW.ED 09:42
DX: O99.613 Diseases of the digestive system complicating pregnancy, third trimester (principal); K08.89 Other specified disorders of teeth and supporting structures; Z88.1 Allergy status to other antibiotic agents; Z88.0 Allergy status to penicillin; Z3A.29 29 weeks gestation of pregnancy
CPT/HCPCS: 99282; A9270

== ENCOUNTER 2018-12-15 08:17 | Inpatient (IN) | payer BC, MEDICAID ==
[2018-12-15] MEDS ORDERED: Nalbuphine 10 MG/1 ML Vial IVPUSH PRN (08:24)
[2018-12-15] MEDS ORDERED: Methylergonovine 0.2 MG/1 ML Amp IM PRN (08:24)
[2018-12-15] MEDS ORDERED: Tranexamic Acid 1,000 MG in Sodium Chloride 0.9% 100 ML IV PRN (08:24)
[2018-12-15] MEDS ORDERED: Sodium Chloride 0.9% 10 ML Syringe FLUSH PRN (08:24)
[2018-12-15] MEDS ORDERED: Carboprost Tromethamine 250 MCG/1 ML Amp IM PRN (08:24)
[2018-12-15] MEDS ORDERED: Sodium Chloride 0.9% 2.5 ML Syringe FLUSH PRN (08:24)
[2018-12-15] MEDS ORDERED: Ondansetron 4 MG/2 ML SDV IV PRN (08:24)
[2018-12-15] MEDS ORDERED: Misoprostol 200 MCG Tab PO PRN (08:24)
[2018-12-15] MEDS ORDERED: Lidocaine 1% 50 ML MDV INJECT PRN (08:24)
[2018-12-15] MEDS ORDERED: Water For Irrigation,Sterile 1,000 ML Container IRR PRN (08:24)
[2018-12-15] MEDS ORDERED: Sodium Chloride 0.9% 10 ML SDV IV PRN (08:24)
--- NOTE | 2018-12-15 08:24 | PCM.LDHP ---
L&D History of Present Illness - General Date of Service: 12/15/18 Admit Problem/Dx: Admission Diagnosis/Problem Admission Diagnosis/Problem 12/15/18 08:21 28yo [facility] 12/23/2018 38 6/7wks Comes in active labor, A+, RI, GBS neg. Proven pelvis 7lb 11oz. Allergies PCN's. Source of Information: Patient History Limitations: Reports: No Limitations - History of Present Illness Timing/Duration: Reports: minutes: Location, : Reports: Abdomen Quality: Reports: Ache, Stabbing Improves with: Reports: None Worsens with: Reports: None Associated Symptoms: Reports: N - Related Data Allergies/Adverse Reactions: Allergies Allergy/AdvReac Type Severity Reaction Status Date / Time amoxicillin Allergy Rash Verified 04/17/18 07:50 Penicillins Allergy Rash Verified 04/17/18 07:50 Home Medications: Home Meds Cefdinir 300 mg PO BID 10/04/18 [History] Past Medical History - Past Health History Medical/Surgical History: Denies Medical/Surgical History HEENT History: Reports: None Cardiovascular History: Reports: None Respiratory History: Reports: None Gastrointestinal History: Reports: GERD Genitourinary History: Reports: None RN 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 History: Reports: , Spontaneous Musculoskeletal History: Reports: None Neurological History: Reports: None Psychiatric History: Reports: None Endocrine/Metabolic History: Reports: Obesity/BMI 30+ Hematologic History: Reports: Anemia Immunologic History: Reports: None Oncologic (Cancer) History: Reports: None Dermatologic History: Reports: None - Infectious Disease History Infectious Disease History: Reports: Chicken Pox Social & Family History - Family History Family Medical History: Unobtainable - Caffeine Use Caffeine Use: Reports: Coffee H&P Review of Systems - Review of Systems: Review Of Systems: See Below General: Reports: No Symptoms HEENT: Reports: No Symptoms Pulmonary: Reports: No Symptoms Cardiovascular: Reports: No Symptoms Gastrointestinal: Reports: No Symptoms Genitourinary: Reports: No Symptoms Musculoskeletal: Reports: No Symptoms Skin: Reports: No Symptoms Psychiatric: Reports: No Symptoms Neurological: Reports: No Symptoms Hematologic/Lymphatic: Reports: No Symptoms Immunologic: Reports: No Symptoms L&D Exam - Exam Exam: See Below - OB Specific Contraction Intensity: Strong Movement: Active Heart Tones: Present Heart Rate (FHR) Variability: Moderate (6-25 bmp) Presentation: Vertex - Garsia Score Garsia Score Cervix Position: Anterior Garsia Score Consistency: Soft Garsia Score Effacement: >80% Garsia Score Dilation: > 5 cm Garsia Score 's Station: -2 Garsia Score Total: 11 - Exam General: Alert, Oriented, Cooperative, Mild Distress HEENT: Hearing Intact Lungs: Clear to Auscultation, Normal Respiratory Effort Cardiovascular: Regular Rate, Regular Rhythm, Normal S1, Normal S2 GI/Abdominal Exam: Soft, Non-Tender Rectal Exam: Deferred Genitourinary: Normal external exam, Normal bimanual exam, Cervical dilitation Back Exam: Normal Inspection, Full Range of Motion Extremities: Normal Inspection, Normal Range of Motion, Non-Tender, No Pedal Edema, Normal Capillary Refill Skin: Warm, Dry, Intact Neurological: Cranial Nerves Intact, Reflexes Equal Bilateral, Strength Equal Bilateral, Normal Speech, Normal Tone Psychiatric: Alert, Normal Affect, Normal Mood - Problem List (1) Supervision of normal IUP (intrauterine ) in multigravida SNOMED Code(s): 886152367, 862946295, 686710243 ICD Code: Z34.80 - ENCOUNTER FOR SUPRVSN OF NORMAL , UNSP TRIMESTER Status: Acute Priority: High Current Visit: Yes Qualifiers: Trimester: third trimester Qualified Code(s): Z34.83 - Encounter for supervision of other normal , third trimester Problem List Initiated/Reviewed/Updated: Yes Assessment/Plan Comment:: Labor A: 28yo EDC 12/23/2018 38 6/7wks Comes in active labor, A+, RI, GBS neg. Proven pelvis 7lb 11oz. Allergies PCN's. P: Admit, epidural, plan AROM then anticipate . Dr Clemens updated
[2018-12-15] MEDS: Lactated Ringers 1,000 ML IV SCH ×2 (08:25→09:50)
[2018-12-15] MEDS ORDERED: Oxytocin/0.9 % Sodium Chloride 30 UNIT/500 ML BAG IV SCH (08:30)
--- NOTE | 2018-12-15 09:40 | PCM.PREANE ---
Preanesthetic Assessment - Anesthesia/Transfusion/Family Hx Anesthesia History: No Prior Anesthesia Family History of Anesthesia Reaction: No Transfusion History: No Prior Transfusion(s) - Review of Systems General: No Symptoms Pulmonary: No Symptoms Cardiovascular: No Symptoms Gastrointestinal: No Symptoms Neurological: No Symptoms Other: Reports: None - Physical Assessment Height: 5 ft 3 in Weight: 79.832 kg ASA Class: 2 Mental Status: Alert & Oriented x3 Airway Class: Mallampati = 2 Dentition: Reports: Normal Dentition Thyro-Mental Finger Breadths: 3 Mouth Opening Finger Breadths: 3 ROM/Head Extension: Full Lungs: Clear to Auscultation, Normal Respiratory Effort Cardiovascular: Regular Rate, Regular Rhythm - Lab Values: Laboratory Last Values WBC 10.27 K/uL (4.0-11.0) 12/15/18 08:42 RBC 3.92 M/uL (4.30-5.90) L 12/15/18 08:42 Hgb 9.8 g/dL (12.0-16.0) L 12/15/18 08:42 Hct 31.0 % (36.0-46.0) L 12/15/18 08:42 MCV 79.1 fL (80.0-98.0) L 12/15/18 08:42 MCH 25.0 pg (27.0-32.0) L 12/15/18 08:42 MCHC 31.6 g/dL (31.0-37.0) 12/15/18 08:42 RDW Std Deviation 42.4 fl (28.0-62.0) 12/15/18 08:42 RDW Coeff of Joshua 15 % (11.0-15.0) 12/15/18 08:42 Plt Count 190 K/uL (150-400) 12/15/18 08:42 MPV 12.20 fL (7.40-12.00) H 12/15/18 08:42 Nucleated RBC % 0.0 /100WBC 12/15/18 08:42 Nucleated RBCs # 0 K/uL 12/15/18 08:42 - Allergies Allergies/Adverse Reactions: Allergies Allergy/AdvReac Type Severity Reaction Status Date / Time amoxicillin Allergy Rash Verified 04/17/18 07:50 Penicillins Allergy Rash Verified 04/17/18 07:50 - Anesthesia Plan Free Text/Narrative:: Pt with anemia, type and cross ordered. 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: , Spontaneous : 3 Para: 1 LMP (Approximate): Musculoskeletal History: Reports: None Neurological History: Reports: None Psychiatric History: Reports: None Endocrine/Metabolic History: Reports: Obesity/BMI 30+ Hematologic History: Reports: Anemia Immunologic History: Reports: None Oncologic (Cancer) History: Reports: None Dermatologic History: Reports: None - Infectious Disease History Infectious Disease History: Reports: Chicken Pox - SUBSTANCE USE Smoking Status *Q: Never Smoker Second Hand Smoke Exposure: No Recreational Drug Use History: No - HOME MEDS Home Medications: Home Meds Cefdinir 300 mg PO BID 10/04/18 [History] - CURRENT (IN HOUSE) MEDS Current Meds: Current Medications Carboprost Tromethamine (Hemabate Ds) 250 mcg IM ASDIRECTED PRN PRN Reason: Post Hemorrhage Lactated Ringer's (Ringers, Lactated) 1,000 mls @ 150 mls/hr IV ASDIRECTED MURALI Oxytocin/Sodium Chloride (Oxytocin 30 Unit/500 Ml-Ns) 30 unit in 500 mls @ 999 mls/hr IV TITRATE MURALI Tranexamic Acid 1,000 mg/ (Sodium Chloride) 110 mls @ 660 mls/hr IV ONETIME PRN PRN Reason: Bleeding Lidocaine HCl (Xylocaine 1%) 50 ml INJECT ONETIME PRN PRN Reason: Laceration repair Methylergonovine Maleate (Methergine) 0.2 mg IM ASDIRECTED PRN PRN Reason: Post Hemorrhage Misoprostol (Cytotec) 200 mcg PO ONETIME PRN PRN Reason: Post Hemorrhage Nalbuphine HCl (Nubain) 10 mg IVPUSH ASDIRECTED PRN PRN Reason: Pain (severe 7-10) Ondansetron HCl (Zofran) 4 mg IV Q4H PRN PRN Reason: Nausea/Vomiting Sodium Chloride (Saline Flush) 10 ml FLUSH ASDIRECTED PRN PRN Reason: Keep Vein Open Sodium Chloride (Saline Flush) 2.5 ml FLUSH ASDIRECTED PRN PRN Reason: Keep Vein Open Sodium Chloride (Normal Saline) 10 ml IV ASDIRECTED PRN PRN Reason: IV Use Sterile Water (Sterile Water For Irrigation) 1,000 ml IRR ASDIRECTED PRN PRN Reason: delivery
[2018-12-15] MEDS ORDERED: Lidocaine HCl/EPINEPHrine 5 ML IJ ONE (09:43)
[2018-12-15] MEDS ORDERED: Benzocaine/Menthol 20%-0.5% Spray 78 GM Cannister TOP PRN (13:35)
[2018-12-15] MEDS ORDERED: Acetaminophen 500 MG Tab PO PRN ×2 (13:35)
[2018-12-15] MEDS ORDERED: Ibuprofen 400 MG Tab PO PRN (13:35)
[2018-12-15] MEDS ORDERED: Ibuprofen 800 MG Tab PO PRN (13:35)
[2018-12-15] MEDS ORDERED: oxyCODONE 5 MG Tab PO PRN (13:35)
[2018-12-15] MEDS ORDERED: Bisacodyl 10 MG Supp RECTAL PRN (13:35)
[2018-12-15] MEDS ORDERED: Lanolin 100% Cream 7 GM Tube TOP PRN (13:35)
[2018-12-15] MEDS ORDERED: Witch Hazel Medicated Pads 40/Jar TOP PRN (13:35)
--- NOTE | 2018-12-15 13:41 | PCM.DEL ---
L & D Note - General Info Date of Service: 12/15/18 Mother's Due Date: 12/23/18 - Delivery Note Labor: Spontaneous Delivery Outcome: Livebirth Infant Delivery Method: Spontaneous Vaginal Delivery-Single Delivery Mode: Spontaneous Presentation: Vertex Nuchal Cord: None Anesthesia Type: Epidural Episiotomy Type: None Laceration: None Placenta: Intact, Spontaneous Cord: 3 Vessels Estimated Blood Loss: 100 Resuscitation Needed: No : Stimulated Score 1 min: 9 Score 5 min: 9 Second Stage Interventions: Reports: Pushing, Pulls Own Legs Back Delivery Comments (Free Text/Narrative):: of viable male. Head delivered with good pushing, shoulders and body followed easily. Infant with spont cry placed on mother s abd with RN at for evaluation. Delayed cord clamping, pitocin to IVF. Cord clamped and cut by FOB. Cord blood collected. Placenta delivered grossly intact. Inspection noted intact perineum. EBL 100cc. APGARS 9/9, WT pending bonding. Mother and baby left in stable condition for recovery. - General Info Date of Service: 12/15/18 Admission Dx/Problem (Free Text): Admission Diagnosis/Problem Admission Diagnosis/Problem 12/15/18 08:21 28yo EDC 12/23/2018 38 6/7wks Comes in active labor, A+, RI, GBS neg. Proven pelvis 7lb 11oz. Allergies PCN's. Functional Status: Reports: Pain Controlled - Review of Systems General: Reports: No Symptoms HEENT: Reports: No Symptoms Pulmonary: Reports: No Symptoms Cardiovascular: Reports: No Symptoms Gastrointestinal: Reports: No Symptoms Genitourinary: Reports: No Symptoms Musculoskeletal: Reports: No Symptoms Skin: Reports: No Symptoms Neurological: Reports: No Symptoms Psychiatric: Reports: No Symptoms - Patient Data Weight - Most Recent: 79.832 kg Lab Results Last 24 Hours: Laboratory Results - last 24 hr 12/15/18 12/15/18 Range/Units 08:42 08:42 WBC 10.27 (4.0-11.0) K/uL RBC 3.92 L (4.30-5.90) M/uL Hgb 9.8 L (12.0-16.0) g/dL Hct 31.0 L (36.0-46.0) % MCV 79.1 L (80.0-98.0) fL MCH 25.0 L (27.0-32.0) pg MCHC 31.6 (31.0-37.0) g/dL RDW Std Deviation 42.4 (28.0-62.0) fl RDW Coeff of Joshua 15 (11.0-15.0) % Plt Count 190 (150-400) K/uL MPV 12.20 H (7.40-12.00) fL Nucleated RBC % 0.0 /100WBC Nucleated RBCs # 0 K/uL Blood Type A POSITIVE Antibody Screen NEGATIVE Crossmatch See Detail Med Orders - Current: Current Medications Acetaminophen (Tylenol Extra Strength) 500 mg PO Q4H PRN PRN Reason: Pain Acetaminophen (Tylenol Extra Strength) 1,000 mg PO Q4H PRN PRN Reason: Pain Benzocaine/Menthol (Dermoplast Pain Relief 20%-0.5% Ham[place]) 78 gm TOP ASDIRECTED PRN PRN Reason: Perineal Comfort Measure Discontinued Medications Carboprost Tromethamine (Hemabate Ds) 250 mcg IM ASDIRECTED PRN PRN Reason: Post Hemorrhage Lactated Ringer's (Ringers, Lactated) 1,000 mls @ 150 mls/hr IV ASDIRECTED MURALI Last Admin: 12/15/18 09:50 Dose: 500 mls/hr Oxytocin/Sodium Chloride (Oxytocin 30 Unit/500 Ml-Ns) 30 unit in 500 mls @ 999 mls/hr IV TITRATE MURALI Tranexamic Acid 1,000 mg/ (Sodium Chloride) 110 mls @ 660 mls/hr IV ONETIME PRN PRN Reason: Bleeding Fentanyl/Bupivacaine HCl (Pstnmmrs-Qzryp-Yj 2 Mcg/Ml-0.125%) Confirm Administered Dose 100 mls @ as directed .ROUTE .STK-MED ONE Stop: 12/15/18 09:43 Lidocaine HCl (Xylocaine 1%) 50 ml INJECT ONETIME PRN PRN Reason: Laceration repair Lidocaine/Epinephrine (Lidocaine 1.5%-Epi 1:200,000) Confirm Administered Dose 5 ml IJ .STK-MED ONE Stop: 12/15/18 09:44 Methylergonovine Maleate (Methergine) 0.2 mg IM ASDIRECTED PRN PRN Reason: Post Hemorrhage Misoprostol (Cytotec) 200 mcg PO ONETIME PRN PRN Reason: Post Hemorrhage Nalbuphine HCl (Nubain) 10 mg IVPUSH ASDIRECTED PRN PRN Reason: Pain (severe 7-10) Ondansetron HCl (Zofran) 4 mg IV Q4H PRN PRN Reason: Nausea/Vomiting Sodium Chloride (Saline Flush) 10 ml FLUSH ASDIRECTED PRN PRN Reason: Keep Vein Open Sodium Chloride (Saline Flush) 2.5 ml FLUSH ASDIRECTED PRN PRN Reason: Keep Vein Open Sodium Chloride (Normal Saline) 10 ml IV ASDIRECTED PRN PRN Reason: IV Use Sterile Water (Sterile Water For Irrigation) 1,000 ml IRR ASDIRECTED PRN PRN Reason: delivery - Exam General: Alert, Oriented, Cooperative Lungs: Normal Respiratory Effort (Female) Exam: Normal External Exam, Normal Bimanual Exam, Vaginal Bleeding Back Exam: Normal Inspection, Full Range of Motion Extremities: Normal Inspection, No Pedal Edema Skin: Warm, Dry, Intact Neurological: No New Focal Deficit, Normal Speech, Normal Tone Psy/Mental Status: Alert, Normal Affect, Normal Mood - Problem List & Annotations (1) Supervision of normal IUP (intrauterine ) in multigravida SNOMED Code(s): 480856434, 978287701, 132171726 Code(s): Z34.80 - ENCOUNTER FOR SUPRVSN OF NORMAL , UNSP TRIMESTER Status: Acute Priority: High Current Visit: Yes Qualifiers: Trimester: third trimester Qualified Code(s): Z34.83 - Encounter for supervision of other normal , third trimester (2) (normal spontaneous vaginal delivery) SNOMED Code(s): 47941426 Code(s): O80 - ENCOUNTER FOR FULL-TERM UNCOMPLICATED DELIVERY Status: Acute Priority: High Current Visit: Yes - Problem List Review Problem List Initiated/Reviewed/Updated: Yes - My Orders Last 24 Hours: My Active Orders 12/15/18 08:24 Heart Tones [RC] CONTINUOUS Non Stress Test [RC] PER UNIT ROUTINE May Shower [RC] ASDIRECTED Notify Provider [RC] PRN Up ad Sangeetha [RC] ASDIRECTED Vaginal Exam [RC] PRN Vital Signs [RC] PER UNIT ROUTINE 12/15/18 08:42 TYPE AND SCREEN [BBK] Routine 12/15/18 13:35 May Shower [RC] ASDIRECTED Up ad Sangeetha [RC] ASDIRECTED Vital Signs [RC] PER UNIT ROUTINE Acetaminophen [Tylenol Extra Strength] 1,000 mg PO Q4H PRN Acetaminophen [Tylenol Extra Strength] 500 mg PO Q4H PRN Benzocaine/Menthol [Dermoplast Pain Relief 20%-0.5% Hamlin] 78 gm TOP ASDIRECTED PRN Bisacodyl [Dulcolax] 10 mg RECTAL ONETIME PRN Docusate Sodium [Colace] 100 mg PO BID PRN Ibuprofen [Motrin] 400 mg PO Q4H PRN Ibuprofen [Motrin] 800 mg PO Q6H PRN Lanolin [Lansinoh HPA] See Dose Instructions TOP ASDIRECTED PRN Witch Sarahy [Tucks] 1 pad TOP ASDIRECTED PRN oxyCODONE 5 mg PO Q2H PRN Assess Lochia [WOMSER] Per Unit Routine Assess Uterine Involution [WOMSER] Per Unit Routine Peripheral IV Discontinue [OM.PC] Routine Resuscitation Status Routine 12/15/18 13:36 Patient Status [ADT] Routine 12/15/18 Dinner Regular Diet [DIET] - Plan Plan:: Labor A: 28yo EDC 12/23/2018 38 6/7wks Comes in active labor, A+, RI, GBS neg. Proven pelvis 7lb 11oz. Allergies PCN's. P: Admit, epidural, plan AROM then anticipate . Dr Clemens updated Delivery A: of viable male, APGARS 9/9, WT pending bonding. Intact perineum, EBL 100cc. Mother and baby left in stable condition bonding well P: Routine pp POC
[2018-12-15] MEDS: Docusate Sodium 100 MG Cap PO PRN (21:11)
[2018-12-16] MEDS: Docusate Sodium 100 MG Cap PO PRN (08:15)
--- NOTE | 2018-12-16 08:36 | PCM.DCSUM1 ---
<Araceli Galvan R - Last Filed: 12/16/18 08:34> Discharge Summary - Hospital Course Free Text/Narrative:: Discharge home with baby, follow up 6 weeks and PRN Diagnosis: Stroke: No Modified Custer Scale: No Symptoms at All Modified Custer Scale Score: 0 - Discharge Data Discharge Date: 12/16/18 Discharge Disposition: Home, Self-Care 01 Condition: Good - Discharge Diagnosis/Problem(s) (1) (normal spontaneous vaginal delivery) SNOMED Code(s): 69178422 ICD Code: O80 - ENCOUNTER FOR FULL-TERM UNCOMPLICATED DELIVERY Status: Acute Priority: High Current Visit: Yes - Patient Instructions Diet: Usual Diet as Tolerated Activity: As Tolerated, No Strenuous Activities, Rest and Relax Today Driving: May Drive Today Showering/Bathing: January Shower Notify Provider of: Fever, Increased Pain, Nausea and/or Vomiting - Discharge Plan *PRESCRIPTION DRUG MONITORING PROGRAM REVIEWED*: Not Applicable *COPY OF PRESCRIPTION DRUG MONITORING REPORT IN PATIENT CASSIA: Not Applicable Home Medications: Home Meds Cefdinir 300 mg PO BID 10/04/18 [History] Oxygen Therapy Mode: Room Air Patient Handouts: Vaginal Delivery, Home Care Instructions for Mom Referrals: [facility] [Outside] Adelaida Camejo CNM [Mid-] - 01/26/19 10:45 am - Discharge Summary/Plan Comment DC Time >30 min.: Yes - General Info Date of Service: 12/16/18 Admission Dx/Problem (Free Text: Admission Diagnosis/Problem Admission Diagnosis/Problem 12/15/18 08:21 28yo EDC 12/23/2018 38 6/7wks Comes in active labor, A+, RI, GBS neg. Proven pelvis 7lb 11oz. Allergies PCN's. Functional Status: Reports: Pain Controlled - Review of Systems General: Reports: No Symptoms HEENT: Reports: No Symptoms Pulmonary: Reports: No Symptoms Cardiovascular: Reports: No Symptoms Gastrointestinal: Reports: No Symptoms Genitourinary: Reports: No Symptoms Musculoskeletal: Reports: No Symptoms Skin: Reports: No Symptoms Neurological: Reports: No Symptoms Psychiatric: Reports: No Symptoms - Patient Data Vitals - Most Recent: Last Vital Signs Temp 36.7 C 12/16/18 04:10 Pulse 86 12/16/18 04:10 Resp 16 12/16/18 04:10 BP 103/62 12/16/18 04:10 Pulse Ox 98 12/16/18 04:10 Weight - Most Recent: 79.832 kg Lab Results - Last 24 hrs: Laboratory Results - last 24 hr 12/15/18 12/15/18 Range/Units 08:42 08:42 WBC 10.27 (4.0-11.0) K/uL RBC 3.92 L (4.30-5.90) M/uL Hgb 9.8 L (12.0-16.0) g/dL Hct 31.0 L (36.0-46.0) % MCV 79.1 L (80.0-98.0) fL MCH 25.0 L (27.0-32.0) pg MCHC 31.6 (31.0-37.0) g/dL RDW Std Deviation 42.4 (28.0-62.0) fl RDW Coeff of Joshua 15 (11.0-15.0) % Plt Count 190 (150-400) K/uL MPV 12.20 H (7.40-12.00) fL Nucleated RBC % 0.0 /100WBC Nucleated RBCs # 0 K/uL Blood Type A POSITIVE Antibody Screen NEGATIVE Crossmatch See Detail Med Orders - Current: Current Medications Acetaminophen (Tylenol Extra Strength) 500 mg PO Q4H PRN PRN Reason: Pain Acetaminophen (Tylenol Extra Strength) 1,000 mg PO Q4H PRN PRN Reason: Pain Benzocaine/Menthol (Dermoplast Pain Relief 20%-0.5% Anna) 78 gm TOP ASDIRECTED PRN PRN Reason: Perineal Comfort Measure Bisacodyl (Dulcolax) 10 mg RECTAL ONETIME PRN PRN Reason: Constipation Docusate Sodium (Colace) 100 mg PO BID PRN PRN Reason: Constipation Last Admin: 12/16/18 08:15 Dose: 100 mg Emollient Ointment (Lansinoh Hpa) 0 gm TOP ASDIRECTED PRN PRN Reason: Sore Nipples Ibuprofen (Motrin) 400 mg PO Q4H PRN PRN Reason: Pain Ibuprofen (Motrin) 800 mg PO Q6H PRN PRN Reason: Pain Last Admin: 12/15/18 21:09 Dose: 800 mg Oxycodone HCl (Oxycodone) 5 mg PO Q2H PRN PRN Reason: Pain Witch Sarahy (Tucks) 1 pad TOP ASDIRECTED PRN PRN Reason: comfort care Discontinued Medications Carboprost Tromethamine (Hemabate Ds) 250 mcg IM ASDIRECTED PRN PRN Reason: Post Hemorrhage Lactated Ringer's (Ringers, Lactated) 1,000 mls @ 150 mls/hr IV ASDIRECTED [facility] Last Admin: 12/15/18 09:50 Dose: 500 mls/hr Oxytocin/Sodium Chloride (Oxytocin 30 Unit/500 Ml-Ns) 30 unit in 500 mls @ 999 mls/hr IV TITRATE MURALI Tranexamic Acid 1,000 mg/ (Sodium Chloride) 110 mls @ 660 mls/hr IV ONETIME PRN PRN Reason: Bleeding Fentanyl/Bupivacaine HCl (Ewhaoxlu-Kbzou-Zx 2 Mcg/Ml-0.125%) Confirm Administered Dose 100 mls @ as directed .ROUTE .STK-MED ONE Stop: 12/15/18 09:43 Lidocaine HCl (Xylocaine 1%) 50 ml INJECT ONETIME PRN PRN Reason: Laceration repair Lidocaine/Epinephrine (Lidocaine 1.5%-Epi 1:200,000) Confirm Administered Dose 5 ml IJ .STK-MED ONE Stop: 12/15/18 09:44 Methylergonovine Maleate (Methergine) 0.2 mg IM ASDIRECTED PRN PRN Reason: Post Hemorrhage Misoprostol (Cytotec) 200 mcg PO ONETIME PRN PRN Reason: Post Hemorrhage Nalbuphine HCl (Nubain) 10 mg IVPUSH ASDIRECTED PRN PRN Reason: Pain (severe 7-10) Ondansetron HCl (Zofran) 4 mg IV Q4H PRN PRN Reason: Nausea/Vomiting Sodium Chloride (Saline Flush) 10 ml FLUSH ASDIRECTED PRN PRN Reason: Keep Vein Open Sodium Chloride (Saline Flush) 2.5 ml FLUSH ASDIRECTED PRN PRN Reason: Keep Vein Open Sodium Chloride (Normal Saline) 10 ml IV ASDIRECTED PRN PRN Reason: IV Use Sterile Water (Sterile Water For Irrigation) 1,000 ml IRR ASDIRECTED PRN PRN Reason: delivery - Exam General: Reports: Alert, Oriented, Cooperative Lungs: Reports: Clear to Auscultation, Normal Respiratory Effort Cardiovascular: Reports: Regular Rate, Regular Rhythm, No Murmurs GI/Abdominal Exam: Soft, Non-Tender (Female) Exam: Deferred Rectal (Female) Exam: Deferred Back Exam: Reports: Full Range of Motion Extremities: Normal Range of Motion Skin: Reports: Warm, Dry, Intact Neurological: Reports: No New Focal Deficit Psy/Mental Status: Reports: Alert, Normal Affect, Normal Mood <Adelaida Camejo - Last Filed: 12/16/18 08:52> Discharge Summary - Discharge Diagnosis/Problem(s) (1) Supervision of normal IUP (intrauterine ) in multiavida SNOMED Code(s): 643568000, 411296711, 593014178 ICD Code: Z34.80 - ENCOUNTER FOR SUPRVSN OF NORMAL , UNSP TRIMESTER Status: Acute Priority: High Current Visit: Yes Qualifiers: Trimester: third trimester Qualified Code(s): Z34.83 - Encounter for supervision of other normal , third trimester (2) (normal spontaneous vaginal delivery) SNOMED Code(s): 98605755 ICD Code: O80 - ENCOUNTER FOR FULL-TERM UNCOMPLICATED DELIVERY Status: Acute Priority: High Current Visit: Yes - Discharge Summary/Plan Comment DC Time >30 min.: Yes - Patient Data Vitals - Most Recent: Last Vital Signs Temp 36.7 C 12/16/18 04:10 Pulse 86 12/16/18 04:10 Resp 16 12/16/18 08:42 BP 103/62 12/16/18 04:10 Pulse Ox 98 12/16/18 04:10 Lab Results - Last 24 hrs: Laboratory Results - last 24 hr 12/15/18 12/15/18 Range/Units 08:42 08:42 WBC 10.27 (4.0-11.0) K/uL RBC 3.92 L (4.30-5.90) M/uL Hgb 9.8 L (12.0-16.0) g/dL Hct 31.0 L (36.0-46.0) % MCV 79.1 L (80.0-98.0) fL MCH 25.0 L (27.0-32.0) pg MCHC 31.6 (31.0-37.0) g/dL RDW Std Deviation 42.4 (28.0-62.0) fl RDW Coeff of Joshua 15 (11.0-15.0) % Plt Count 190 (150-400) K/uL MPV 12.20 H (7.40-12.00) fL Nucleated RBC % 0.0 /100WBC Nucleated RBCs # 0 K/uL Blood Type A POSITIVE Antibody Screen NEGATIVE Crossmatch See Detail Med Orders - Current: Current Medications Acetaminophen (Tylenol Extra Strength) 500 mg PO Q4H PRN PRN Reason: Pain Acetaminophen (Tylenol Extra Strength) 1,000 mg PO Q4H PRN PRN Reason: Pain Benzocaine/Menthol (Dermoplast Pain Relief 20%-0.5% Anna) 78 gm TOP ASDIRECTED PRN PRN Reason: Perineal Comfort Measure Bisacodyl (Dulcolax) 10 mg RECTAL ONETIME PRN PRN Reason: Constipation Docusate Sodium (Colace) 100 mg PO BID PRN PRN Reason: Constipation Last Admin: 12/16/18 08:15 Dose: 100 mg Emollient Ointment (Lansinoh Hpa) 0 gm TOP ASDIRECTED PRN PRN Reason: Sore Nipples Ibuprofen (Motrin) 400 mg PO Q4H PRN PRN Reason: Pain Ibuprofen (Motrin) 800 mg PO Q6H PRN PRN Reason: Pain Last Admin: 12/15/18 21:09 Dose: 800 mg Oxycodone HCl (Oxycodone) 5 mg PO Q2H PRN PRN Reason: Pain Witch Sarahy (Tucks) 1 pad TOP ASDIRECTED PRN PRN Reason: comfort care Discontinued Medications Carboprost Tromethamine (Hemabate Ds) 250 mcg IM ASDIRECTED PRN PRN Reason: Post Hemorrhage Lactated Ringer's (Ringers, Lactated) 1,000 mls @ 150 mls/hr IV ASDIRECTED MURALI Last Admin: 12/15/18 09:50 Dose: 500 mls/hr Oxytocin/Sodium Chloride (Oxytocin 30 Unit/500 Ml-Ns) 30 unit in 500 mls @ 999 mls/hr IV TITRATE MURALI Tranexamic Acid 1,000 mg/ (Sodium Chloride) 110 mls @ 660 mls/hr IV ONETIME PRN PRN Reason: Bleeding Fentanyl/Bupivacaine HCl (Ipptjzkq-Yllyp-Jq 2 Mcg/Ml-0.125%) Confirm Administered Dose 100 mls @ as directed .ROUTE .[employer]-MED ONE Stop: 12/15/18 09:43 Lidocaine HCl (Xylocaine 1%) 50 ml INJECT ONETIME PRN PRN Reason: Laceration repair Lidocaine/Epinephrine (Lidocaine 1.5%-Epi 1:200,000) Confirm Administered Dose 5 ml IJ .[employer]-MED ONE Stop: 12/15/18 09:44 Methylergonovine Maleate (Methergine) 0.2 mg IM ASDIRECTED PRN PRN Reason: Post Hemorrhage Misoprostol (Cytotec) 200 mcg PO ONETIME PRN PRN Reason: Post Hemorrhage Nalbuphine HCl (Nubain) 10 mg IVPUSH ASDIRECTED PRN PRN Reason: Pain (severe 7-10) Ondansetron HCl (Zofran) 4 mg IV Q4H PRN PRN Reason: Nausea/Vomiting Sodium Chloride (Saline Flush) 10 ml FLUSH ASDIRECTED PRN PRN Reason: Keep Vein Open Sodium Chloride (Saline Flush) 2.5 ml FLUSH ASDIRECTED PRN PRN Reason: Keep Vein Open Sodium Chloride (Normal Saline) 10 ml IV ASDIRECTED PRN PRN Reason: IV Use Sterile Water (Sterile Water For Irrigation) 1,000 ml IRR ASDIRECTED PRN PRN Reason: delivery
--- NOTE | 2018-12-16 08:42 | PCM48HPAN ---
Post Anesthesia Note - EVALUATION WITHIN 48HRS OF ANESTHETIC Vital Signs in Normal Range: Yes Patient Participated in Evaluation: Yes Respiratory Function Stable: Yes Airway Patent: Yes Cardiovascular Function Stable: Yes Hydration Status Stable: Yes Pain Control Satisfactory: Yes Nausea and Vomiting Control Satisfactory: Yes Mental Status Recovered: Yes Resp Rate: 16
[2018-12-16 11:02] VITALS: BP 102/89
== END 2018-12-16 16:10 | disposition home or self-care (01) | DRG 560 ==
LOC: MW.OBCHECK 08:17 → MW.OB 08:19 → MW.OBCHECK 13:36 → MW.OB 13:43
PROVIDERS: ADMIT Obstetrics & Gynecology; ATTEND Obstetrics & Gynecology
PROC: 10907ZC Drainage of Amniotic Fluid, Therapeutic from Products of Conception, Via Natural or Artificial Opening (ICD-10-PCS; principal; 2018-12-15)
PROC: 10E0XZZ Delivery of Products of Conception, External Approach (ICD-10-PCS; principal; 2018-12-15)
PROC: 6A550ZT Pheresis of Cord Blood Stem Cells, Single (ICD-10-PCS; principal; 2018-12-15)
PROC: 00HU33Z Insertion of Infusion Device into Spinal Canal, Percutaneous Approach (ICD-10-PCS; 2018-12-15)
PROC: 3E0R3BZ Introduction of Anesthetic Agent into Spinal Canal, Percutaneous Approach (ICD-10-PCS; 2018-12-15)
DX: O99.214 Obesity complicating childbirth (principal); E66.9 Obesity, unspecified; Z3A.38 38 weeks gestation of pregnancy; Z37.0 Single live birth; O99.02 Anemia complicating childbirth; D64.9 Anemia, unspecified; O99.62 Diseases of the digestive system complicating childbirth; K21.9 Gastro-esophageal reflux disease without esophagitis; Z88.0 Allergy status to penicillin; Z88.1 Allergy status to other antibiotic agents
CPT/HCPCS: 36415; 51702; 59025; 59409; 85027; A9270-GY; J7120

== ENCOUNTER 2019-09-08 22:52 | Emergency (ER) | payer BC, MEDICAID ==
[2019-09-08] MEDS ORDERED: Lidocaine 2% Viscous Solution 15 ML Cup PO ONE (23:10)
[2019-09-08] MEDS ORDERED: Benzocaine 20% Topical Spray UD MUCMEM ONE (23:10)
--- NOTE | 2019-09-08 23:15 | EDM.PDOC ---
ED HPI GENERAL MEDICAL PROBLEM - General Chief Complaint: ENT Problem Stated Complaint: TOOTH ACHE Time Seen by Provider: 09/08/19 23:04 - History of Present Illness INITIAL COMMENTS - FREE TEXT/NARRATIVE: HISTORY AND PHYSICAL: History of present illness: Patient is a 28-year-old female who is approximately 8 weeks and will be following with Adelaida Camejo in the clinic and presents with complaints of dental pain at her left central incisor. The patient has multiple areas of dental problems and has seen dentist in the past but has not had definitive care. She presents with complaints of throbbing pain at tooth #9 and has no other systemic issues such as fever chills nausea vomiting abdominal pain vaginal bleeding sinus congestion cough or runny nose. She is concerned that there may be an infection. Review of systems: As per history of present illness and below otherwise all systems reviewed and negative. Past medical history: As per history of present illness and as reviewed below otherwise noncontributory. Surgical history: As per history of present illness and as reviewed below otherwise noncontributory. Social history: No reported history of drug or alcohol abuse. Family history: As per history of present illness and as reviewed below otherwise noncontributory. Physical exam: General: Well-developed well-nourished female who is nontoxic and vital signs are noted by me. There is no evidence of any overt facial swelling HEENT: Atraumatic, normocephalic, pupils reactive, negative for conjunctival pallor or scleral icterus, mucous membranes moist, throat clear, neck supple, nontender, trachea midline. There is no cervical adenopathy or nuchal rigidity and on dental evaluation there are multiple areas of dental disease and gingival changes and the most sensitive to this would be #9 where there are 2 cavities seen and some mild gum swelling. Lungs: Clear to auscultation, breath sounds equal bilaterally, chest nontender. Heart: S1S2, regular, rate and rhythm no overt murmurs Abdomen: Soft, nondistended, nontender. Pelvis: deferred Genitourinary: Deferred. Rectal: Deferred. Extremities: Atraumatic, full range motion neurovascular unremarkable. Neuro: Awake, alert, oriented. Cranial nerves II through XII unremarkable. Cerebellum unremarkable. Motor and sensory unremarkable throughout. Exam nonfocal. Diagnostics: None Therapeutics: dental balls I discussed with the patient and significant other bedside that due to her first trimester we are very limited with pain management and she can only have Tylenol [id number] and I did advise ice packs to her face to help with the throbbing in the swelling. The patient was given dental balls and due to her allergy for amoxicillin she will be given clindamycin from [facility]. I advised her to follow-up with a dentist and to have a dialogue with Adelaida Camejo about any further pain management that could be indicated with her status. Impression: Dental pain due to dental caries Definitive disposition and diagnosis as appropriate pending reevaluation and review of above. Treatments INSTRUCTOR LOOPING: Reports: Acetaminophen dental area Pain Score (Numeric/FACES): 8 - Related Data Allergies Allergy/AdvReac Type Severity Reaction Status Date / Time amoxicillin Allergy Rash Verified 09/08/19 23:00 Penicillins Allergy Rash Verified 09/08/19 23:00 Home Meds: Home Meds . 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 History: Reports: , Spontaneous Musculoskeletal History: Reports: None Neurological History: Reports: None Psychiatric History: Reports: None Endocrine/Metabolic History: Reports: Obesity/BMI 30+ Insulin Pump Model and Area Director: None Hematologic History: Reports: Anemia Immunologic History: Reports: None Oncologic (Cancer) History: Reports: None Dermatologic History: Reports: None - Infectious Disease History Infectious Disease History: Reports: Chicken Pox Social & Family History - Family History Family Medical History: Noncontributory - Tobacco Use Smoking Status *Q: Never Smoker - Caffeine Use Caffeine Use: Reports: Coffee, Soda Other Caffeine Use: 1 1/2 sodas/day - Recreational Drug Use Recreational Drug Use: No ED ROS GENERAL - Review of Systems Review Of Systems: Comprehensive ROS is negative, except as noted in HPI. ED EXAM, GENERAL - Physical Exam Exam: See Below (See dictation) Course - Vital Signs Last Recorded V/S: Last Vital Signs Temp 36.3 C 09/08/19 23:00 Pulse 82 09/08/19 23:00 Resp 18 12/18/19 23:00 BP 137/69 09/08/19 23:00 Pulse Ox 97 09/08/19 23:00 - Orders/Labs/Meds Orders: Active Orders 24 hr Category Date Time Status Benzocaine [Hurricaine One 20%] Med 09/08/19 23:10 Once 2 each MUCMEM ONETIME ONE Lidocaine 2% [Xylocaine 2% Viscous] Med 09/08/19 23:10 Once 15 ml PO ONETIME ONE Medication Orders Benzocaine (Hurricaine One 20%) 2 each MUCMEM ONETIME ONE Stop: 09/08/19 23:11 Lidocaine HCl (Xylocaine 2% Viscous) 15 ml PO ONETIME ONE Stop: 09/08/19 23:11 Meds: Medications Generic Name Dose Route Start Last Admin Trade Name Jakob PRN Reason Stop Dose Admin Benzocaine 2 each 09/08/19 23:10 Hurricaine One 20% MUCMEM 09/08/19 23:11 ONETIME ONE Lidocaine HCl 15 ml 09/08/19 23:10 Xylocaine 2% Viscous PO 09/08/19 23:11 ONETIME ONE Departure - Departure Time of Disposition: 23:15 Disposition: Home, Self-Care 01 Condition: Good Clinical Impression: Pain due to dental caries, First trimester - Discharge Information Referrals: PCP,None [Primary Care Provider] - Additional Instructions: The following information is given to patients seen in the emergency department who are being discharged to home. This information is to outline your options for follow-up care. We provide all patients seen in our emergency department with a follow-up referral. The need for follow-up, as well as the timing and circumstances, are variable depending upon the specifics of your emergency department visit. If you don't have a primary care physician on staff, we will provide you with a referral. We always advise you to contact your personal physician following an emergency department visit to inform them of the circumstance of the visit and for follow-up with them and/or the need for any referrals to a consulting specialist. The emergency department will also refer you to a specialist when appropriate. This referral assures that you have the opportunity for followup care with a specialist. All of these measure are taken in an effort to provide you with optimal care, which includes your followup. Under all circumstances we always encourage you to contact your private physician who remains a resource for coordinating your care. When calling for followup care, please make the office aware that this follow-up is from your recent emergency room visit. If for any reason you are refused follow-up, please contact the [facility] emergency department at and ask to speak to the emergency department charge nurse. [facility] [address] [address] Use ice to face for swelling and pain and use [id number] Tylenol. Use the dental balls you have been given today in the ED for pain management and take antibiotics as prescribed to you from [facility], clindamycin. Please connect with a local dentist for definitive care and treatment and follow-up with your provider in the clinic for further evaluation of your as well as this problem. Sepsis Event Note - Evaluation Sepsis Screening Result: No Definite Risk - Focused Exam Vital Signs: Vital Signs Temp Pulse Resp BP Pulse Ox 09/08/19 23:00 36.3 C 82 18 137/69 97 Date Exam was Performed: 09/08/19 Time Exam was Performed: 23:10 - My Orders Last 24 Hours: My Active Orders 09/08/19 23:10 Benzocaine [Hurricaine One 20%] 2 each MUCMEM ONETIME ONE Lidocaine 2% [Xylocaine 2% Viscous] 15 ml PO ONETIME ONE - Assessment/Plan Last 24 Hours: My Active Orders 09/08/19 23:10 Benzocaine [Hurricaine One 20%] 2 each MUCMEM ONETIME ONE Lidocaine 2% [Xylocaine 2% Viscous] 15 ml PO ONETIME ONE
[2019-09-08 23:33] VITALS: BP 134/65; PULSE 72
== END 2019-09-08 23:20 | disposition home or self-care (01) ==
LOC: MW.ED 22:52
DX: K02.9 Dental caries, unspecified (principal); O99.611 Diseases of the digestive system complicating pregnancy, first trimester; O99.211 Obesity complicating pregnancy, first trimester; E66.9 Obesity, unspecified; Z3A.01 Less than 8 weeks gestation of pregnancy; Z88.0 Allergy status to penicillin; Z88.1 Allergy status to other antibiotic agents
CPT/HCPCS: 99283; A9270

== ENCOUNTER 2020-04-12 00:58 | Inpatient (IN) | payer MEDICAID ==
[2020-04-12] MEDS: Lactated Ringers 1,000 ML IV SCH ×3 (01:07→02:48)
[2020-04-12] MEDS ORDERED: Lidocaine 1% 50 ML MDV INJECT PRN (01:09)
[2020-04-12] MEDS ORDERED: Sodium Chloride 0.9% 10 ML Syringe FLUSH PRN (01:09)
[2020-04-12] MEDS ORDERED: Nalbuphine 10 MG/1 ML Vial IVPUSH PRN (01:09)
[2020-04-12] MEDS ORDERED: Carboprost Tromethamine 250 MCG/1 ML Amp IM PRN (01:09)
[2020-04-12] MEDS ORDERED: Tranexamic Acid 1,000 MG in Sodium Chloride 0.9% 100 ML IV PRN (01:09)
[2020-04-12] MEDS ORDERED: Sodium Chloride 0.9% 2.5 ML Syringe FLUSH PRN (01:09)
[2020-04-12] MEDS ORDERED: Water For Irrigation,Sterile 1,000 ML Container IRR PRN (01:09)
[2020-04-12] MEDS ORDERED: Misoprostol 200 MCG Tab PO PRN (01:09)
[2020-04-12] MEDS ORDERED: Sodium Chloride 0.9% 10 ML SDV IV PRN (01:09)
[2020-04-12] MEDS ORDERED: Methylergonovine 0.2 MG/1 ML Amp IM PRN (01:09)
[2020-04-12] MEDS ORDERED: Butorphanol 1 MG/ML SDV IVPUSH PRN (01:09)
[2020-04-12] MEDS ORDERED: Oxytocin/0.9 % Sodium Chloride 30 UNIT/500 ML BAG IV SCH ×2 (01:15→05:15)
[2020-04-12] MEDS ORDERED: fentaNYL 100 MCG/2 ML SDV ONE (01:47)
[2020-04-12] MEDS ORDERED: Ropivacaine 0.2% PF 2 MG/ML 20 ML SDV ONE (01:47)
[2020-04-12] MEDS ORDERED: Ropivacaine HCl/PF 100 ML ONE (01:47)
--- NOTE | 2020-04-12 02:32 | PCM.PREANE ---
Preanesthetic Assessment - Procedure Proposed Procedure: RONALD - Anesthesia/Transfusion/Family Hx Anesthesia History: Prior Anesthesia Without Reaction Family History of Anesthesia Reaction: No Transfusion History: No Prior Transfusion(s) Intubation History: Unknown - Review of Systems General: No Symptoms Pulmonary: No Symptoms Cardiovascular: No Symptoms Gastrointestinal: No Symptoms Neurological: No Symptoms Other: Reports: None - Physical Assessment NPO Status Date: 04/12/20 NPO Status Time: 02:00 Height: 1.6 m Weight: 85.275 kg ASA Class: 1 Mental Status: Alert & Oriented x3 Airway Class: Mallampati = 2 Dentition: Reports: Normal Dentition Thyro-Mental Finger Breadths: 3 Mouth Opening Finger Breadths: 3 ROM/Head Extension: Full Lungs: Clear to Auscultation Cardiovascular: Regular Rate - Lab Values: Laboratory Last Values WBC 10.15 K/uL (4.0-11.0) 04/12/20 01:07 RBC 4.23 M/uL (4.30-5.90) L 04/12/20 01:07 Hgb 10.3 g/dL (12.0-16.0) L 04/12/20 01:07 Hct 32.5 % (36.0-46.0) L 04/12/20 01:07 MCV 76.8 fL (80.0-98.0) L 04/12/20 01:07 MCH 24.3 pg (27.0-32.0) L 04/12/20 01:07 MCHC 31.7 g/dL (31.0-37.0) 04/12/20 01:07 RDW Std Deviation 41.6 fl (28.0-62.0) 04/12/20 01:07 RDW Coeff of Joshua 15 % (11.0-15.0) 04/12/20 01:07 Plt Count 248 K/uL (150-400) 04/12/20 01:07 MPV 13.70 fL (7.40-12.00) H 04/12/20 01:07 Blood Type A POSITIVE 04/12/20 01:07 Antibody Screen NEGATIVE 04/12/20 01:07 - Allergies Allergies/Adverse Reactions: Allergies Allergy/AdvReac Type Severity Reaction Status Date / Time amoxicillin Allergy Severe Other Verified 04/12/20 02:14 Penicillins Allergy Severe Other Verified 04/12/20 02:14 - Blood Blood Available: No Product(s) Available: None - Anesthesia Plan Free Text/Narrative:: Previous RONALD without issues. Discussed, ? answered, permit signed, acceptable candidate. Pre-Op Medication Ordered: None - Acknowledgements Anesthesia Type Planned: Epidural Pt an Appropriate Candidate for the Planned Anesthesia: Yes Alternatives and Risks of Anesthesia Discussed w Pt/Guardian: Yes Pt/Guardian Understands and Agrees with Anesthesia Plan: Yes Additional Comments: , active labor, pain 8/10, 7 cm. 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 History: Reports: , Spontaneous Musculoskeletal History: Reports: None Neurological History: Reports: None Psychiatric History: Reports: None Endocrine/Metabolic History: Reports: Obesity/BMI 30+ Hematologic History: Reports: Anemia Immunologic History: Reports: None Oncologic (Cancer) History: Reports: None Dermatologic History: Reports: None - Infectious Disease History Infectious Disease History: Reports: Chicken Pox - SUBSTANCE USE Smoking Status *Q: Never Smoker Second Hand Smoke Exposure: No - HOME MEDS Home Medications: Home Meds Famotidine [Pepcid] 10 mg PO DAILY PRN 04/11/20 [History] Vits #93/Iron Fum/FA [ Formula Tablet] 1 each PO DAILY 04/11/20 [History] - CURRENT (IN HOUSE) MEDS Current Meds: Current Medications Butorphanol Tartrate (Stadol) 1 mg IVPUSH Q1H PRN PRN Reason: Pain Carboprost Tromethamine (Hemabate Ds) 250 mcg IM ASDIRECTED PRN PRN Reason: Post Hemorrhage Oxytocin/Sodium Chloride (Oxytocin 30 Unit/500 Ml-Ns) 30 unit in 500 mls @ 500 mls/hr IV TITRATE MURALI Tranexamic Acid 1,000 mg/ (Sodium Chloride) 110 mls @ 660 mls/hr IV ONETIME PRN PRN Reason: Bleeding Lactated Ringer's (Ringers, Lactated) 1,000 mls @ 150 mls/hr IV ASDIRECTED MURALI Last Admin: 04/12/20 01:53 Dose: 999 mls/hr Documented by: Lidocaine HCl (Xylocaine 1%) 50 ml INJECT ONETIME PRN PRN Reason: Laceration repair Methylergonovine Maleate (Methergine) 0.2 mg IM ASDIRECTED PRN PRN Reason: Post Hemorrhage Misoprostol (Cytotec) 200 mcg PO ONETIME PRN PRN Reason: Post Hemorrhage Nalbuphine HCl (Nubain) 10 mg IVPUSH Q1H PRN PRN Reason: Pain (severe 7-10) Sodium Chloride (Saline Flush) 10 ml FLUSH ASDIRECTED PRN PRN Reason: Keep Vein Open Sodium Chloride (Saline Flush) 2.5 ml FLUSH ASDIRECTED PRN PRN Reason: Keep Vein Open Sodium Chloride (Normal Saline) 10 ml IV ASDIRECTED PRN PRN Reason: IV Use Sterile Water (Sterile Water For Irrigation) 1,000 ml IRR ASDIRECTED PRN PRN Reason: delivery Discontinued Medications Fentanyl (Sublimaze) Confirm Administered Dose 100 mcg .ROUTE .STK-MED ONE Stop: 04/12/20 01:48 Ropivacaine (Naropin 0.2%) Confirm Administered Dose 100 mls @ as directed .ROUTE .STK-MED ONE Stop: 04/12/20 01:48 Ropivacaine (Naropin 0.2%) Confirm Administered Dose 20 ml .ROUTE .STK-MED ONE Stop: 04/12/20 01:48
[2020-04-12] MEDS ORDERED: Terbutaline 1 MG/ML SDV SUBCUT PRN (05:03)
--- NOTE | 2020-04-12 08:21 | PCM.DEL ---
L & D Note - General Info Date of Service: 04/12/20 - Delivery Note Labor: Spontaneous Delivery Outcome: Livebirth Delivery Method: Spontaneous Vaginal Delivery-Single Delivery Mode: Spontaneous Presentation: Left Occiput Anterior (BASSEM) Nuchal Cord: None Anesthesia Type: Epidural Amniotic Fluid Description: Clear Episiotomy Type: None Laceration: None Placenta: Intact, Spontaneous Cord: 3 Vessels Estimated Blood Loss: 200 Resuscitation Needed: No [place]: Bulb Syringe, Stimulated, Warmed Score 1 min: 8 Score 5 min: 9 Delivery Comments (Free Text/Narrative):: Liveborn male infant born at 0756 weighing 3010g apgars 8 and 9. - General Info Date of Service: 04/12/20 - Patient Data Weight - Most Recent: 188 lb I&O - Last 24 Hours: Intake & Output 04/11/20 04/12/20 04/12/20 22:59 06:59 14:59 Intake Total 1999 Balance 2000 Lab Results Last 24 Hours: Laboratory Results - last 24 hr 04/12/20 04/12/20 Range/Units 01:07 01:07 WBC 10.15 (4.0-11.0) K/uL RBC 4.23 L (4.30-5.90) M/uL Hgb 10.3 L (12.0-16.0) g/dL Hct 32.5 L (36.0-46.0) % MCV 76.8 L (80.0-98.0) fL MCH 24.3 L (27.0-32.0) pg MCHC 31.7 (31.0-37.0) g/dL RDW Std Deviation 41.6 (28.0-62.0) fl RDW Coeff of Joshua 15 (11.0-15.0) % Plt Count 248 (150-400) K/uL MPV 13.70 H (7.40-12.00) fL Blood Type A POSITIVE Antibody Screen NEGATIVE Med Orders - Current: Current Medications Butorphanol Tartrate (Stadol) 1 mg IVPUSH Q1H PRN PRN Reason: Pain Carboprost Tromethamine (Hemabate Ds) 250 mcg IM ASDIRECTED PRN PRN Reason: Post Hemorrhage Oxytocin/Sodium Chloride (Oxytocin 30 Unit/500 Ml-Ns) 30 unit in 500 mls @ 500 mls/hr IV TITRATE MURALI Last Admin: 04/12/20 07:47 Dose: 500 mls/hr Documented by: Tranexamic Acid 1,000 mg/ (Sodium Chloride) 110 mls @ 660 mls/hr IV ONETIME PRN PRN Reason: Bleeding Lactated Ringer's (Ringers, Lactated) 1,000 mls @ 150 mls/hr IV ASDIRECTED MURALI Last Admin: 04/12/20 02:48 Dose: 150 mls/hr Documented by: Oxytocin/Sodium Chloride (Oxytocin 30 Unit/500 Ml-Ns) 30 unit in 500 mls @ 2 mls/hr IV TITRATE MURALI; Protocol Lidocaine HCl (Xylocaine 1%) 50 ml INJECT ONETIME PRN PRN Reason: Laceration repair Methylergonovine Maleate (Methergine) 0.2 mg IM ASDIRECTED PRN PRN Reason: Post Hemorrhage Misoprostol (Cytotec) 200 mcg PO ONETIME PRN PRN Reason: Post Hemorrhage Nalbuphine HCl (Nubain) 10 mg IVPUSH Q1H PRN PRN Reason: Pain (severe 7-10) Sodium Chloride (Saline Flush) 10 ml FLUSH ASDIRECTED PRN PRN Reason: Keep Vein Open Sodium Chloride (Saline Flush) 2.5 ml FLUSH ASDIRECTED PRN PRN Reason: Keep Vein Open Sodium Chloride (Normal Saline) 10 ml IV ASDIRECTED PRN PRN Reason: IV Use Last Admin: 04/12/20 07:46 Dose: 10 ml Documented by: Sterile Water (Sterile Water For Irrigation) 1,000 ml IRR ASDIRECTED PRN PRN Reason: delivery Terbutaline Sulfate (Brethine) 0.25 mg SUBCUT ASDIRECTED PRN PRN Reason: Tacysystole Discontinued Medications Fentanyl (Sublimaze) Confirm Administered Dose 100 mcg .ROUTE .STK-MED ONE Stop: 04/12/20 01:48 Ropivacaine (Naropin 0.2%) Confirm Administered Dose 100 mls @ as directed .ROUTE .STK-MED ONE Stop: 04/12/20 01:48 Ropivacaine (Naropin 0.2%) Confirm Administered Dose 20 ml .ROUTE .STK-MED ONE Stop: 04/12/20 01:48 - Problem List & Annotations (1) Vaginal delivery SNOMED Code(s): 653914842 Code(s): O80 - ENCOUNTER FOR FULL-TERM UNCOMPLICATED DELIVERY Status: Acute Current Visit: Yes - Problem List Review Problem List Initiated/Reviewed/Updated: Yes - Assessment Assessment:: 29yo s/p . No complications - Plan Plan:: Admit to for routine care Monitor lochia Encourage
[2020-04-12] MEDS ORDERED: Bisacodyl 10 MG Supp RECTAL PRN (08:23)
[2020-04-12] MEDS ORDERED: oxyCODONE 5 MG Tab PO PRN (08:23)
[2020-04-12] MEDS ORDERED: Docusate Sodium 100 MG Cap PO PRN (08:23)
[2020-04-12] MEDS ORDERED: Ibuprofen 400 MG Tab PO PRN (08:23)
[2020-04-12] MEDS ORDERED: Benzocaine/Menthol 20%-0.5% Spray 78 GM Cannister TOP PRN (08:23)
[2020-04-12] MEDS ORDERED: Lanolin 100% Cream 7 GM Tube TOP PRN (08:23)
[2020-04-12] MEDS ORDERED: Witch Hazel Medicated Pads 40/Jar TOP PRN (08:23)
[2020-04-12] MEDS ORDERED: Acetaminophen 500 MG Tab PO PRN (08:23)
[2020-04-12] MEDS: Acetaminophen 500 MG Tab PO PRN ×2 (14:48→20:28)
--- NOTE | 2020-04-12 15:46 | OR ---
SURGEON: Sneha Vallejo M.D. DATE OF PROCEDURE: 04/12/2020 PREOPERATIVE DIAGNOSES: 1. A 39-week intrauterine . 2. Active labor. POSTOPERATIVE DIAGNOSES: 1. A 39-week intrauterine . 2. Active labor. PROCEDURE: Spontaneous vaginal delivery, intact perineum. PRIMARY SURGEON: Sneha Vallejo MD LUMBER STRAIGHTENED: DANIELLE Adams. ESTIMATED BLOOD LOSS: 200 mL. COMPLICATIONS: None known. FINDINGS: Viable male. score 8 at one minute, 9 at five minutes. Weight of 6 pounds 10 ounces. Spontaneous delivery, intact placenta, 3-vessel cord. DISPOSITION: Infant to nursery, mom in LDRP. PROCEDURE DETAILS: Anita is a 29-year-old, G3, P2, at 39 weeks' gestational age, who presented on the b and b gang worker of 04/12/2020 with increasing contractions. On initial exam, she was found to be 7 cm. She was admitted, routine labs were drawn. IV hydration was initiated. She is COVID negative. The patient continued to progress, underwent regional anesthesia, became comfortable. Shortly before 7 a.m., she was found to be complete, 100% effaced, minus 2 station. Amniotomy was performed, a large amount of clear fluid was returned. The patient continued to labor. Within the next approximately an hour, was found to be +1 station and feeling increasing pressure. She was placed in modified dorsal lithotomy position. She was prepped and draped in usual aseptic manner and began pushing efforts. Pushed readily to a +4 station, was able to deliver 's head atraumatically spontaneously, followed by anterior shoulder, posterior shoulder, and remainder of the body without difficulty. Infant's oropharynx and nares were bulb suctioned. was handed off to his mother with attending nursing staff at the side. After a delay, the cord was clamped x2 and cut. The cord was shorter than usual. Cord arterial, cord venous, cord blood sampling obtained. Light pressure was applied while the placenta was delivered spontaneously intact. Vigorous fundal uterine massage was then applied while 30 units of Pitocin was delivered in 500 mL of IV fluid. Upon inspection of cervix, vaginal sidewall, and perineum, they were found to be intact. Sponge and instrument count was correct. Hemostasis evident. Uterus remained firm. The patient remained in LDRP, to nursery. SHARON / GÓMEZ /[id number]
[2020-04-12] MEDS: Ibuprofen 800 MG Tab PO PRN ×2 (15:52→22:09)
[2020-04-13] MEDS: Ibuprofen 800 MG Tab PO PRN (05:07)
--- NOTE | 2020-04-13 07:11 | PCM.PNPP ---
<Willian Gaston - Last Filed: 04/13/20 07:08> - General Info Date of Service: 04/13/20 Subjective Update: Pt doing well this morning. Pain is moderate, but has been well-controlled with scheduled tylenol and motrin. Bleeding is minimal. Has been ambulating, voiding, and tolerating oral intake with no problem. Pt is bottle feeding. Functional Status: Reports: Pain Controlled - General Info Date of Service: 04/13/20 - Patient Data Vital Signs - Most Recent: Last Vital Signs Temp 97.8 F 04/13/20 05:00 Pulse 78 04/13/20 05:00 Resp 17 04/13/20 05:00 BP 119/79 04/13/20 05:00 Pulse Ox 94 L 04/13/20 05:00 Weight - Most Recent: 85.275 kg Lab Results - Last 24 Hours: Laboratory Results - last 24 hr 04/12/20 04/13/20 Range/Units 07:54 05:30 Hgb 9.8 L (12.0-16.0) g/dL Hct 32.0 L (36.0-46.0) % Cord ABG pH 7.259 (7.18-7.38) Cord ABG Base Excess -5 (-10--2) Cord VBG pH 7.335 (7.25-7.45) Cord VBG Base Excess -5 (-10--2) Med Orders - Current: Current Medications Acetaminophen (Tylenol Extra Strength) 500 mg PO Q4H PRN PRN Reason: Pain Acetaminophen (Tylenol Extra Strength) 1,000 mg PO Q4H PRN PRN Reason: Pain Last Admin: 04/12/20 20:28 Dose: 1,000 mg Documented by: Benzocaine/Menthol (Dermoplast Pain Relief 20%-0.5% [place]) 78 gm TOP ASDIRECTED PRN PRN Reason: Perineal Comfort Measure Bisacodyl (Dulcolax) 10 mg RECTAL ONETIME PRN PRN Reason: Constipation Carboprost Tromethamine (Hemabate Ds) 250 mcg IM ASDIRECTED PRN PRN Reason: Post Hemorrhage Docusate Sodium (Colace) 100 mg PO BID PRN PRN Reason: Constipation Last Admin: 04/12/20 09:47 Dose: 100 mg Documented by: Emollient Ointment (Lansinoh Hpa) 0 gm TOP ASDIRECTED PRN PRN Reason: Sore Nipples Oxytocin/Sodium Chloride (Oxytocin 30 Unit/500 Ml-Ns) 30 unit in 500 mls @ 500 mls/hr IV TITRATE [facility] Last Admin: 04/12/20 07:47 Dose: 500 mls/hr Documented by: Tranexamic Acid 1,000 mg/ (Sodium Chloride) 110 mls @ 660 mls/hr IV ONETIME PRN PRN Reason: Bleeding Lactated Ringer's (Ringers, Lactated) 1,000 mls @ 150 mls/hr IV ASDIRECTED MURALI Last Admin: 04/12/20 02:48 Dose: 150 mls/hr Documented by: Oxytocin/Sodium Chloride (Oxytocin 30 Unit/500 Ml-Ns) 30 unit in 500 mls @ 2 mls/hr IV TITRATE [facility]; Protocol Ibuprofen (Motrin) 400 mg PO Q4H PRN PRN Reason: Pain Ibuprofen (Motrin) 800 mg PO Q6H PRN PRN Reason: Pain Last Admin: 04/13/20 05:07 Dose: 800 mg Documented by: Lidocaine HCl (Xylocaine 1%) 50 ml INJECT ONETIME PRN PRN Reason: Laceration repair Methylergonovine Maleate (Methergine) 0.2 mg IM ASDIRECTED PRN PRN Reason: Post Hemorrhage Oxycodone HCl (Oxycodone) 5 mg PO Q2H PRN PRN Reason: Pain Sodium Chloride (Saline Flush) 10 ml FLUSH ASDIRECTED PRN PRN Reason: Keep Vein Open Sodium Chloride (Saline Flush) 2.5 ml FLUSH ASDIRECTED PRN PRN Reason: Keep Vein Open Sodium Chloride (Normal Saline) 10 ml IV ASDIRECTED PRN PRN Reason: IV Use Last Admin: 04/12/20 07:46 Dose: 10 ml Documented by: Sterile Water (Sterile Water For Irrigation) 1,000 ml IRR ASDIRECTED PRN PRN Reason: delivery Terbutaline Sulfate (Brethine) 0.25 mg SUBCUT ASDIRECTED PRN PRN Reason: Tacysystole Witch Sarahy (Tucks) 1 pad TOP ASDIRECTED PRN PRN Reason: comfort care Last Admin: 04/12/20 09:47 Dose: 1 tub Documented by: Discontinued Medications Butorphanol Tartrate (Stadol) 1 mg IVPUSH Q1H PRN PRN Reason: Pain Fentanyl (Sublimaze) Confirm Administered Dose 100 mcg .ROUTE .STK-MED ONE Stop: 04/12/20 01:48 Last Admin: 04/12/20 23:29 Dose: Not Given Documented by: Ropivacaine (Naropin 0.2%) Confirm Administered Dose 100 mls @ as directed .ROUTE .STK-MED ONE Stop: 04/12/20 01:48 Last Admin: 04/12/20 23:29 Dose: Not Given Documented by: Misoprostol (Cytotec) 200 mcg PO ONETIME PRN PRN Reason: Post Hemorrhage Nalbuphine HCl (Nubain) 10 mg IVPUSH Q1H PRN PRN Reason: Pain (severe 7-10) Ropivacaine (Naropin 0.2%) Confirm Administered Dose 20 ml .ROUTE .STK-MED ONE Stop: 04/12/20 01:48 Last Admin: 04/12/20 23:29 Dose: Not Given Documented by: - Interaction Support Person: - Recovery Exam Fundal Tone: Firm Fundal Level: 1 Fingerbreadths Below Umbilicus Fundal Placement: Midline Lochia Amount: Scant Lochia Color: Brownish Perineum Description: Intact, Minimal Bruising/Swelling Episiotomy/Laceration: None Bladder Status: Voiding Urinary Elimination: Voided - Exam General: Alert, Oriented, No Acute Distress HEENT: Pupils Equal, EOMI Neck: Supple, No JVD Lungs: Clear to Auscultation, Normal Respiratory Effort. No: Crackles, Rales, Rhonchi, Stridor, Wheezing Cardiovascular: Regular Rate, Regular Rhythm, No Murmurs GI/Abdominal Exam: Normal Bowel Sounds, Soft, Non-Tender Extremities: Normal Inspection, Normal Range of Motion, Non-Tender, Pedal Edema Skin: Warm, Dry, Intact Neurological: No New Focal Deficit, Normal Speech, Normal Tone Psy/Mental Status: Alert, Normal Affect, Normal Mood - Problem List & Annotations (1) Vaginal delivery SNOMED Code(s): 458981901 Code(s): O80 - ENCOUNTER FOR FULL-TERM UNCOMPLICATED DELIVERY Status: Acute Current Visit: Yes - Problem List Review Problem List Initiated/Reviewed/Updated: Yes - Assessment Assessment:: 29yo s/p . No complications. PPD#1 - Plan Plan:: routine care Monitor lochia Encourage Discharge today <Allison Bazan - Last Filed: 04/13/20 08:34> - Review of Systems General: Reports: No Symptoms HEENT: Reports: No Symptoms Pulmonary: Reports: No Symptoms Cardiovascular: Reports: No Symptoms Gastrointestinal: Reports: No Symptoms Genitourinary: Reports: No Symptoms Musculoskeletal: Reports: No Symptoms Skin: Reports: No Symptoms Neurological: Reports: No Symptoms Psychiatric: Reports: No Symptoms - Patient Data Vital Signs - Most Recent: Last Vital Signs Temp 36.6 C 04/13/20 05:00 Pulse 78 04/13/20 05:00 Resp 17 04/13/20 05:00 BP 119/79 04/13/20 05:00 Pulse Ox 94 L 04/13/20 05:00 Lab Results - Last 24 Hours: Laboratory Results - last 24 hr 04/12/20 04/13/20 Range/Units 07:54 05:30 Hgb 9.8 L (12.0-16.0) g/dL Hct 32.0 L (36.0-46.0) % Cord ABG pH 7.259 (7.18-7.38) Cord ABG Base Excess -5 (-10--2) Cord VBG pH 7.335 (7.25-7.45) Cord VBG Base Excess -5 (-10--2) Med Orders - Current: Current Medications Acetaminophen (Tylenol Extra Strength) 500 mg PO Q4H PRN PRN Reason: Pain Acetaminophen (Tylenol Extra Strength) 1,000 mg PO Q4H PRN PRN Reason: Pain Last Admin: 04/13/20 07:39 Dose: 1,000 mg Documented by: Benzocaine/Menthol (Dermoplast Pain Relief 20%-0.5% [place]) 78 gm TOP ASDIRECTED PRN PRN Reason: Perineal Comfort Measure Bisacodyl (Dulcolax) 10 mg RECTAL ONETIME PRN PRN Reason: Constipation Carboprost Tromethamine (Hemabate Ds) 250 mcg IM ASDIRECTED PRN PRN Reason: Post Hemorrhage Docusate Sodium (Colace) 100 mg PO BID PRN PRN Reason: Constipation Last Admin: 04/12/20 09:47 Dose: 100 mg Documented by: Emollient Ointment (Lansinoh Hpa) 0 gm TOP ASDIRECTED PRN PRN Reason: Sore Nipples Oxytocin/Sodium Chloride (Oxytocin 30 Unit/500 Ml-Ns) 30 unit in 500 mls @ 500 mls/hr IV TITRATE [facility] Last Admin: 04/12/20 07:47 Dose: 500 mls/hr Documented by: Tranexamic Acid 1,000 mg/ (Sodium Chloride) 110 mls @ 660 mls/hr IV ONETIME PRN PRN Reason: Bleeding Lactated Ringer's (Ringers, Lactated) 1,000 mls @ 150 mls/hr IV ASDIRECTED MURALI Last Admin: 04/12/20 02:48 Dose: 150 mls/hr Documented by: Oxytocin/Sodium Chloride (Oxytocin 30 Unit/500 Ml-Ns) 30 unit in 500 mls @ 2 mls/hr IV TITRATE [facility]; Protocol Ibuprofen (Motrin) 400 mg PO Q4H PRN PRN Reason: Pain Ibuprofen (Motrin) 800 mg PO Q6H PRN PRN Reason: Pain Last Admin: 04/13/20 05:07 Dose: 800 mg Documented by: Lidocaine HCl (Xylocaine 1%) 50 ml INJECT ONETIME PRN PRN Reason: Laceration repair Methylergonovine Maleate (Methergine) 0.2 mg IM ASDIRECTED PRN PRN Reason: Post Hemorrhage Oxycodone HCl (Oxycodone) 5 mg PO Q2H PRN PRN Reason: Pain Sodium Chloride (Saline Flush) 10 ml FLUSH ASDIRECTED PRN PRN Reason: Keep Vein Open Sodium Chloride (Saline Flush) 2.5 ml FLUSH ASDIRECTED PRN PRN Reason: Keep Vein Open Sodium Chloride (Normal Saline) 10 ml IV ASDIRECTED PRN PRN Reason: IV Use Last Admin: 04/12/20 07:46 Dose: 10 ml Documented by: Sterile Water (Sterile Water For Irrigation) 1,000 ml IRR ASDIRECTED PRN PRN Reason: delivery Terbutaline Sulfate (Brethine) 0.25 mg SUBCUT ASDIRECTED PRN PRN Reason: Tacysystole Witch Sarahy (Tucks) 1 pad TOP ASDIRECTED PRN PRN Reason: comfort care Last Admin: 04/12/20 09:47 Dose: 1 tub Documented by: Discontinued Medications Butorphanol Tartrate (Stadol) 1 mg IVPUSH Q1H PRN PRN Reason: Pain Fentanyl (Sublimaze) Confirm Administered Dose 100 mcg .ROUTE .STK-MED ONE Stop: 04/12/20 01:48 Last Admin: 04/12/20 23:29 Dose: Not Given Documented by: Ropivacaine (Naropin 0.2%) Confirm Administered Dose 100 mls @ as directed .ROUTE .STK-MED ONE Stop: 04/12/20 01:48 Last Admin: 04/12/20 23:29 Dose: Not Given Documented by: Misoprostol (Cytotec) 200 mcg PO ONETIME PRN PRN Reason: Post Hemorrhage Nalbuphine HCl (Nubain) 10 mg IVPUSH Q1H PRN PRN Reason: Pain (severe 7-10) Ropivacaine (Naropin 0.2%) Confirm Administered Dose 20 ml .ROUTE .STK-MED ONE Stop: 04/12/20 01:48 Last Admin: 04/12/20 23:29 Dose: Not Given Documented by: - Infant Interaction Infant Disposition, : [place] in Room with Family Feeding: Bottle Fed Infant - Problem List & Annotations (1) Vaginal delivery SNOMED Code(s): 038195589 Code(s): O80 - ENCOUNTER FOR FULL-TERM UNCOMPLICATED DELIVERY Status: Acute Current Visit: Yes - My Orders Last 24 Hours: My Active Orders 04/13/20 08:32 Ready for Discharge [RC] PER UNIT ROUTINE - Plan Plan:: Agree with the above. Patient desires discharge home today; reviewed discharge instructions.
--- NOTE | 2020-04-13 07:18 | PCM48HPAN ---
Post Anesthesia Note - EVALUATION WITHIN 48HRS OF ANESTHETIC Vital Signs in Normal Range: Yes Patient Participated in Evaluation: Yes Respiratory Function Stable: Yes Airway Patent: Yes Cardiovascular Function Stable: Yes Hydration Status Stable: Yes Pain Control Satisfactory: Yes Nausea and Vomiting Control Satisfactory: Yes Mental Status Recovered: Yes Vital Signs: Last Vital Signs Temp 36.6 C 04/13/20 05:00 Pulse 78 04/13/20 05:00 Resp 17 04/13/20 05:00 BP 119/79 04/13/20 05:00 Pulse Ox 94 L 04/13/20 05:00
[2020-04-13] MEDS: Acetaminophen 500 MG Tab PO PRN (07:39)
[2020-04-13 08:58] VITALS: BP 126/74; PULSE 65
== END 2020-04-13 11:05 | disposition home or self-care (01) | DRG 807 ==
LOC: MW.OBCHECK 00:58 → MW.OB 01:00 → MW.OBCHECK 01:10 → OBSVTOIN 07:54 → MW.OB 09:55
PROVIDERS: ADMIT Obstetrics & Gynecology; ATTEND Obstetrics & Gynecology
PROC: 10E0XZZ Delivery of Products of Conception, External Approach (ICD-10-PCS; principal; 2020-04-12)
PROC: 10907ZC Drainage of Amniotic Fluid, Therapeutic from Products of Conception, Via Natural or Artificial Opening (ICD-10-PCS; 2020-04-12)
PROC: 3E0R3BZ Introduction of Anesthetic Agent into Spinal Canal, Percutaneous Approach (ICD-10-PCS; 2020-04-12)
PROC: 00HU33Z Insertion of Infusion Device into Spinal Canal, Percutaneous Approach (ICD-10-PCS; 2020-04-12)
DX: O80 Encounter for full-term uncomplicated delivery (principal); Z37.0 Single live birth; Z3A.39 39 weeks gestation of pregnancy
CPT/HCPCS: 01967; 36415; 51702; 59025; 59409; 82803; 85014; 85018; 85027; 86592; 86850; 86900; 86901; A9270-GY; J2590; J7050; J7120

== ENCOUNTER 2020-07-24 20:53 | Emergency (ER) | payer OTHER, MEDICAID ==
[2020-07-24] MEDS ORDERED: Sodium Chloride 0.9% 2.5 ML Syringe FLUSH PRN (21:11)
[2020-07-24] MEDS ORDERED: Sodium Chloride 0.9% 10 ML Syringe FLUSH PRN (21:11)
--- NOTE | 2020-07-24 21:49 | EDM.PDOC ---
ED HPI GENERAL MEDICAL PROBLEM - General Chief Complaint: Respiratory Problem Stated Complaint: sick Time Seen by Provider: 07/24/20 20:59 - History of Present Illness INITIAL COMMENTS - FREE TEXT/NARRATIVE: HISTORY AND PHYSICAL: History of present illness: This is a 29-year-old female with no significant past medical history presents to the ER today secondary to nonproductive cough, shortness of breath, concerns regarding coronavirus. Patient reports that she had significant coronavirus exposures and she has had episodes of anxiety and shortness of breath over the last couple days. Patient denies any recent fevers, shakes, chills, nausea, vomiting, diarrhea, dysuria, frequency, urgency, chest pain, abdominal pain. Review of systems: As per history of present illness and below otherwise all systems reviewed and negative. Past medical history: As per history of present illness and as reviewed below otherwise noncontributory. Surgical history: As per history of present illness and as reviewed below otherwise noncontributory. Social history: No reported history of drug or alcohol abuse. Family history: As per history of present illness and as reviewed below otherwise noncontributory. Physical exam: Constitutional: Patient is oriented to person, place, and time. Appears well- developed and well-nourished. No distress. HEENT: Moist mucous membranes Head: Normocephalic and atraumatic Eyes: Right eye exhibits no discharge. Left eye exhibits no discharge. No scleral icterus Neck: Normal range of motion. No tracheal deviation present. Cardiovascular: Normal rate and regular rhythm. No murmurs gallops or rubs. Pulmonary: Effort normal, no respiratory distress. No wheezing rales or rhonchi, chest wall nontender to palpation Abd: Soft, nondistended, no rebound/guarding, no psoas or obturator signs, no tenderness at Mcberney's point, no Louis's sign. Pt does not present with an exam that would be consistent with an acute surgical abdomen at this time, nontender to palpation Musculoskeletal: Normal range of motion Neurologic: Alert and oriented to person, place and time. Skin: [place], warm and dry. Psychiatric: Normal mood and affect. Behavior is normal. Judgment and thought content normal. Nursing note and vital signs have been reviewed Diagnostics: Chest Xray: Normal cardiac silhouette No infiltrates or effusions identified. No PTX No evidence of acute bony fracture. As interpreted by ER MD: Lyssa EKG: Normal sinus rhythm heart rate of [address]-T wave abnormalities Normal axis No evidence of ST elevation [place] As interpreted by ER physician: Lsysa Assessment and plan: This is a 29-year-old female who presents ER today secondary to concerns regarding coronavirus exposures and shortness of breath. Patient is clinically hemodynamically stable here in the ED. Patient's pulse ox is 98% on room air. Patient does not present with signs or symptoms concerning for an oxygen deficit. Patient will have a coronavirus test performed. Patient will have labs to assess for clot as a cause of shortness of breath. Patient will have an H&H and basic electrolytes as well. Patient CBC is within normal limits. Patient's D-dimer is normal. Patient's coronavirus test is negative. Patient electrolytes are all within normal limits. Patient is resting comfortably and is stable for discharge. Etiology of her symptoms not clear however likely secondary to a viral illness. Patient has been instructed to follow-up with her primary care physician in 1 to 2 days for reevaluation. Reassessment at the time of disposition demonstrates that the patient is in no acute distress. The patient has remained stable throughout the entire ED visit and is without objective evidence for acute process requiring urgent intervention or hospitalization. The patient is stable for discharge, counseling is provided as documented above, discussed symptomatic treatment and specific conditions for return. I have spoken with the patient/caregiver and discussed todays findings, in addition to providing specific details for the plan of care. Questions are answered and there is agreement with the plan. Definitive disposition and diagnosis as appropriate pending reevaluation and review of above. - Related Data Allergies Allergy/AdvReac Type Severity Reaction Status Date / Time amoxicillin Allergy Severe Other Verified 07/24/20 20:57 Penicillins Allergy Severe Other Verified 07/24/20 20:57 Home Meds: Home Meds . [No Known Home Meds] 07/24/20 [History] Past Medical History - Past Health History Medical/Surgical History: Denies Medical/Surgical History HEENT History: Reports: None Cardiovascular History: Reports: None Respiratory History: Reports: None Gastrointestinal History: Reports: GERD Genitourinary History: Reports: None WOOD HE[employer] FIT[employer] MACHINE History: Reports: , Spontaneous Musculoskeletal History: Reports: None Neurological History: Reports: None Psychiatric History: Reports: None Endocrine/Metabolic History: Reports: Obesity/BMI 30+ Insulin Pump Model and Male Infertility Specialist: None Hematologic History: Reports: Anemia Immunologic History: Reports: None Oncologic (Cancer) History: Reports: None Dermatologic History: Reports: None - Infectious Disease History Infectious Disease History: Reports: Chicken Pox Social & Family History - Family History Family Medical History: Noncontributory - Tobacco Use Tobacco Use Status *Q: Never Tobacco User - Caffeine Use Caffeine Use: Reports: Coffee, Soda Other Caffeine Use: 1 1/2 sodas/day - Recreational Drug Use Recreational Drug Use: No ED ROS GENERAL - Review of Systems Review Of Systems: See Below ED EXAM, GENERAL - Physical Exam Exam: See Below #1 Interpretation EKG Date: 07/24/20 Time: 21:10 Rhythm: NSR [place]: Normal P-Wave: Present QRS: Normal ST-T: Normal QT: Normal EKG Interpretation Comments: EKG: Normal sinus rhythm heart rate of [address]-T wave abnormalities Normal axis No evidence of ST elevation [place] As interpreted by ER physician: Lyssa Course - Vital Signs Last Recorded V/S: Last Vital Signs Temp 97.9 F 07/24/20 20:57 Pulse 76 07/24/20 21:52 Resp 16 07/24/20 20:57 BP 156/77 H 07/24/20 21:52 Pulse Ox 97 07/24/20 21:52 - Orders/Labs/Meds Orders: Active Orders 24 hr Category Date Time Status EKG 12 Lead [EKG Documentation Completion] [RC] STAT Care 07/24/20 21:41 Active CORONAVIRUS COVID-19 PCR PHL Stat Lab 07/24/20 21:12 Ordered Sodium Chloride 0.9% [Saline Flush] Med 07/24/20 21:11 Active 10 ml FLUSH ASDIRECTED PRN Sodium Chloride 0.9% [Saline Flush] Med 07/24/20 21:11 Active 2.5 ml FLUSH ASDIRECTED PRN Saline Lock Insert [OM.PC] Stat Oth 07/24/20 21:12 Ordered Medication Orders Sodium Chloride (Saline Flush) 10 ml FLUSH ASDIRECTED PRN PRN Reason: Keep Vein Open Last Admin: 07/24/20 21:47 Dose: 10 ml Documented by: MURDNIC Sodium Chloride (Saline Flush) 2.5 ml FLUSH ASDIRECTED PRN PRN Reason: Keep Vein Open Last Admin: 07/24/20 21:47 Dose: 2.5 ml Documented by: DORINDA Labs: Laboratory Tests 07/24/20 07/24/20 07/24/20 Range/Units 21:31 21:31 21:31 WBC 8.00 (4.0-11.0) K/uL RBC 4.20 L (4.30-5.90) M/uL Hgb 11.8 L (12.0-16.0) g/dL Hct 35.7 L (36.0-46.0) % MCV 85.0 (80.0-98.0) fL MCH 28.1 (27.0-32.0) pg MCHC 33.1 (31.0-37.0) g/dL RDW Std Deviation 47.4 (28.0-62.0) fl RDW Coeff of Joshua 15 (11.0-15.0) % Plt Count 264 (150-400) K/uL MPV 11.60 (7.40-12.00) fL Neut % (Auto) 39.5 L (48.0-80.0) % Lymph % (Auto) 48.3 H (16.0-40.0) % [place] % (Auto) 7.4 (0.0-15.0) % Eos % (Auto) 4.5 (0.0-7.0) % Baso % (Auto) 0.3 (0.0-1.5) % Neut # (Auto) 3.2 (1.4-5.7) K/uL Lymph # (Auto) 3.9 H (0.6-2.4) K/uL [place] # (Auto) 0.6 (0.0-0.8) K/uL Eos # (Auto) 0.4 (0.0-0.7) K/uL Baso # (Auto) 0.0 (0.0-0.1) K/uL Nucleated RBC % 0.0 /100WBC Nucleated RBCs # 0 K/uL D-Dimer, Quantitative < 0.19 (0.0-0.50) mg/L FEU Sodium 140 (136-145) mmol/L Potassium 3.7 (3.5-5.1) mmol/L Chloride 105 (98-107) mmol/L Carbon Dioxide 25.9 (21.0-32.0) mmol/L BUN 14 (7.0-18.0) mg/dL Creatinine 0.8 (0.6-1.0) mg/dL Est Cr Clr Drug Dosing 91.21 mL/min Estimated GFR (MDRD) > 60.0 ml/min Glucose 103 (74-106) mg/dL Calcium 8.9 (8.5-10.1) mg/dL Total Bilirubin 0.2 (0.2-1.0) mg/dL AST 34 (15-37) IU/L ALT 95 H (14-63) IU/L Alkaline Phosphatase 57 (46-116) U/L Total Protein 7.3 (6.4-8.2) g/dL Albumin 3.8 (3.4-5.0) g/dL Globulin 3.5 (2.6-4.0) g/dL Albumin/Globulin Ratio 1.1 (0.9-1.6) Urine HCG, Qual (NEGATIVE) SARS CoV-2 RNA Rapid FRANTZ (NEGATIVE) 07/24/20 07/24/20 Range/Units 21:35 21:48 WBC (4.0-11.0) K/uL RBC (4.30-5.90) M/uL Hgb (12.0-16.0) g/dL Hct (36.0-46.0) % MCV (80.0-98.0) fL MCH (27.0-32.0) pg MCHC (31.0-37.0) g/dL RDW Std Deviation (28.0-62.0) fl RDW Coeff of Joshua (11.0-15.0) % Plt Count (150-400) K/uL MPV (7.40-12.00) fL Neut % (Auto) (48.0-80.0) % Lymph % (Auto) (16.0-40.0) % [place] % (Auto) (0.0-15.0) % Eos % (Auto) (0.0-7.0) % Baso % (Auto) (0.0-1.5) % Neut # (Auto) (1.4-5.7) K/uL Lymph # (Auto) (0.6-2.4) K/uL [place] # (Auto) (0.0-0.8) K/uL Eos # (Auto) (0.0-0.7) K/uL Baso # (Auto) (0.0-0.1) K/uL Nucleated RBC % /100WBC Nucleated RBCs # K/uL D-Dimer, Quantitative (0.0-0.50) mg/L FEU Sodium (136-145) mmol/L Potassium (3.5-5.1) mmol/L Chloride (98-107) mmol/L Carbon Dioxide (21.0-32.0) mmol/L BUN (7.0-18.0) mg/dL Creatinine (0.6-1.0) mg/dL Est Cr Clr Drug Dosing mL/min Estimated GFR (MDRD) ml/min Glucose (74-106) mg/dL Calcium (8.5-10.1) mg/dL Total Bilirubin (0.2-1.0) mg/dL AST (15-37) IU/L ALT (14-63) IU/L Alkaline Phosphatase (46-116) U/L Total Protein (6.4-8.2) g/dL Albumin (3.4-5.0) g/dL Globulin (2.6-4.0) g/dL Albumin/Globulin Ratio (0.9-1.6) Urine HCG, Qual NEGATIVE (NEGATIVE) SARS CoV-2 RNA Rapid FRANTZ NEGATIVE (NEGATIVE) Meds: Medications Generic Name Dose Route Start Last Admin Trade Name Freq PRN Reason Stop Dose Admin Sodium Chloride 10 ml 07/24/20 21:11 07/24/20 21:47 Saline Flush FLUSH 10 ml ASDIRECTED PRN Administration Keep Vein Open Sodium Chloride 2.5 ml 07/24/20 21:11 07/24/20 21:47 Saline Flush FLUSH 2.5 ml ASDIRECTED PRN Administration Keep Vein Open Departure - Departure Time of Disposition: 22:32 Disposition: Home, Self-Care 01 Condition: Good Clinical Impression: Viral illness - Discharge Information Instructions: Viral Respiratory Infection, [id number] Referrals: PCP,None [Primary Care Provider] - Forms: ED Department Discharge Additional Instructions: Please make an appointment to follow-up with your family doctor in the next 2 to 3 days for reevaluation. Return the ER if you have any new or worsening symptoms. The following information is given to patients seen in the emergency department who are being discharged to home. This information is to outline your options for follow-up care. We provide all patients seen in our emergency department with a follow-up referral. The need for follow-up, as well as the timing and circumstances, are variable depending upon the specifics of your emergency department visit. If you don't have a primary care physician on staff, we will provide you with a referral. We always advise you to contact your personal physician following an emergency department visit to inform them of the circumstance of the visit and for follow-up with them and/or the need for any referrals to a consulting specialist. The emergency department will also refer you to a specialist when appropriate. This referral assures that you have the opportunity for follow-up care with a specialist. All of these measure are taken in an effort to provide you with optimal care, which includes your follow-up. Under all circumstances we always encourage you to contact your private physician who remains a resource for coordinating your care. When calling for follow-up care, please make the office aware that this follow-up is from your recent emergency room visit. If for any reason you are refused follow-up, please contact the [facility] Emergency Department at and asked to speak to the emergency department charge nurse. [facility] - Primary Care [address] [place] [id number] [id number] Sepsis Event Note (ED) - Evaluation Sepsis Screening Result: No Definite Risk - Focused Exam Vital Signs: Vital Signs Temp Pulse Resp BP Pulse Ox 07/24/20 21:52 76 156/77 H 97 07/24/20 20:57 97.9 F 69 16 123/84 98 - My Orders Last 24 Hours: My Active Orders 07/24/20 21:11 Sodium Chloride 0.9% [Saline Flush] 10 ml FLUSH ASDIRECTED PRN Sodium Chloride 0.9% [Saline Flush] 2.5 ml FLUSH ASDIRECTED PRN 07/24/20 21:12 CORONAVIRUS COVID-19 PCR PHL Stat Saline Lock Insert [OM.PC] Stat 07/24/20 21:41 EKG 12 Lead [EKG Documentation Completion] [RC] STAT - Assessment/Plan Last 24 Hours: My Active Orders 07/24/20 21:11 Sodium Chloride 0.9% [Saline Flush] 10 ml FLUSH ASDIRECTED PRN Sodium Chloride 0.9% [Saline Flush] 2.5 ml FLUSH ASDIRECTED PRN 07/24/20 21:12 CORONAVIRUS COVID-19 PCR PHL Stat Saline Lock Insert [OM.PC] Stat 07/24/20 21:41 EKG 12 Lead [EKG Documentation Completion] [RC] STAT
[2020-07-24 22:06] LABS: BLOOD UREA NITROGEN,BUN 14 mg/dL (7.0-18.0); CARBON DIOXIDE,CO2 25.9 mmol/L (21.0-32.0); CHLORIDE,CL 105 mmol/L (98-107); GLUCOSE RANDOM 103 mg/dL (74-106); POTASSIUM,K 3.7 mmol/L (3.5-5.1); SODIUM,NA 140 mmol/L (136-145)
--- NOTE | 2020-07-24 22:28 | CR ---
Indication: Shortness of breath Technique: Chest 1 view Comparison: None Findings/Impression: Cardiovascular and mediastinum: Heart size and vasculature are normal in caliber and appearance. Lungs and pleural space: Lungs are clear. No sign of infiltrate or mass. No sign of pleural effusion. No pneumothorax. Bones and soft tissues: No acute findings. Dictated by Chano Garcia MD @ Jul 24 2020 10:25PM Signed by Dr. Chano Garcia @ Jul 24 2020 10:27PM
[2020-07-24 22:44] VITALS: BP 127/70; PULSE 79
== END 2020-07-24 22:45 | disposition home or self-care (01) ==
LOC: MW.ED 20:53
DX: B34.9 Viral infection, unspecified (principal); E66.9 Obesity, unspecified; Z68.30 Body mass index [BMI] 30.0-30.9, adult; Z20.828 Contact with and (suspected) exposure to other viral communicable diseases; Z88.1 Allergy status to other antibiotic agents; Z88.0 Allergy status to penicillin
CPT/HCPCS: 36415; 71045; 71045-26; 80053; 81025; 85025; 85379; 93005; 93010; 99283; 99285-25; U0002

== ENCOUNTER 2020-08-13 21:36 | Emergency (ER) | payer OTHER, MEDICAID ==
[2020-08-13] MEDS ORDERED: Ketorolac 15 MG/ML SDV IVPUSH ONE (22:19)
[2020-08-13] MEDS ORDERED: Sodium Chloride 0.9% 10 ML Syringe FLUSH PRN (22:19)
[2020-08-13] MEDS ORDERED: Sodium Chloride 0.9% 2.5 ML Syringe FLUSH PRN (22:19)
[2020-08-13] MEDS ORDERED: Lactated Ringers 1,000 ML IV ONE (22:19)
--- NOTE | 2020-08-13 22:23 | EDM.PDOC ---
ED HPI GENERAL MEDICAL PROBLEM - General Chief Complaint: Abdominal Pain Stated Complaint: left abdominal pain Time Seen by Provider: 08/13/20 22:21 Source of Information: Reports: Patient History Limitations: Reports: No Limitations - History of Present Illness INITIAL COMMENTS - FREE TEXT/NARRATIVE: 29-year-old female h/o chlyamidia presents with left adnexal pain that started Friday morning. She started having her period on and she is still currently on it, she notes heavier than usual bleeding and pain worse than normal, currently rated 7/10. Pain is sharp, constant, nonradiating, worse with movement and palpation. She denies fever, chills, dysuria, vaginal discharge. She had sex with her on Friday. She removed her tampon before intercourse. ROS: A 10-point review of systems, other than pertinent positives and negatives as stated per HPI, is otherwise negative Past medical history: No additional pertinent history Past Surgical history: No additional pertinent history Social history: No additional pertinent history Family history: No additional pertinent history PHYSICAL EXAM General: AOx4, GCS = 15, No distress HEENT: dry mucous membrane Neck: supple, no meningismus, no Kernig or Brudzinski Cardiac: S1S2 RRR Respiratory: CTAB, no crackles or rales, no wheezing Abdomen: Soft, nontender, no rebound or guarding, nondistended, no pulsatile mass. : Left adnexal tenderness, vaginal bleeding Back: nontender Musculoskeletal: NVI distally, no deformity Neuro: No focal deficits, CN 2 - 12 WNL. LOWER L ABDOMINAL Pain Score (Numeric/FACES): 7 - Related Data Allergies Allergy/AdvReac Type Severity Reaction Status Date / Time amoxicillin Allergy Severe Other Verified 08/13/20 22:07 Penicillins Allergy Severe Other Verified 08/13/20 22:07 Home Meds: Home Meds Doxycycline Hyclate 100 mg PO BID #28 capsule 08/14/20 [Rx] Naproxen [EC-Naproxen] 500 mg PO BID #10 tablet. 08/14/20 [Rx] metroNIDAZOLE [Flagyl] 500 mg PO Q12H #28 tab 08/14/20 [Rx] Past Medical History - Past Health History Medical/Surgical History: Denies Medical/Surgical History HEENT History: Reports: None Cardiovascular History: Reports: None Respiratory History: Reports: None Gastrointestinal History: Reports: GERD Genitourinary History: Reports: None [facility] History: Reports: , Spontaneous Musculoskeletal History: Reports: None Neurological History: Reports: None Psychiatric History: Reports: None Endocrine/Metabolic History: Reports: Obesity/BMI 30+ Insulin [employer] Products: None Hematologic History: Reports: Anemia Immunologic History: Reports: None Oncologic (Cancer) History: Reports: None Dermatologic History: Reports: None - Infectious Disease History Infectious Disease History: Reports: Chicken Pox Social & Family History - Family History Family Medical History: No Pertinent Family History - Tobacco Use Tobacco Use Status *Q: Never Tobacco User - Caffeine Use Caffeine Use: Reports: Coffee, Soda Other Caffeine Use: 1 1/2 sodas/day - Recreational Drug Use Recreational Drug Use: No ED ROS GENERAL - Review of Systems Review Of Systems: See Below (see dictation) ED EXAM, GI/ABD - Physical Exam Exam: See Below (see dictation) Course - Vital Signs Last Recorded V/S: Last Vital Signs Temp 98 F 08/14/20 02:42 Pulse 66 08/14/20 02:42 Resp 16 08/14/20 02:42 BP 126/57 L 08/14/20 02:42 Pulse Ox 99 08/14/20 02:42 - Orders/Labs/Meds Orders: Active Orders 24 hr Category Date Time Status CHLAMYDIA AND GONORRHEA BY [facility] Stat Lab 08/14/20 02:46 Received Sodium Chloride 0.9% [Saline Flush] Med 08/13/20 22:19 Active 10 ml FLUSH ASDIRECTED PRN Sodium Chloride 0.9% [Saline Flush] Med 08/13/20 22:19 Active 2.5 ml FLUSH ASDIRECTED PRN Saline Lock Insert [OM.PC] Stat Oth 08/13/20 22:19 Ordered Medication Orders Sodium Chloride (Saline Flush) 10 ml FLUSH ASDIRECTED PRN PRN Reason: Keep Vein Open Last Admin: 11/22/20 22:36 Dose: 10 ml Documented by: JORDI Sodium Chloride (Saline Flush) 2.5 ml FLUSH ASDIRECTED PRN PRN Reason: Keep Vein Open Last Admin: 08/13/20 22:35 Dose: 2.5 ml Documented by: JORDI Labs: Laboratory Tests 08/13/20 08/13/20 08/13/20 Range/Units 22:20 22:20 22:20 WBC 4.58 (4.0-11.0) K/uL RBC 4.14 L (4.30-5.90) M/uL Hgb 11.5 L (12.0-16.0) g/dL Hct 36.1 (36.0-46.0) % MCV 87.2 (80.0-98.0) fL MCH 27.8 (27.0-32.0) pg MCHC 31.9 (31.0-37.0) g/dL RDW Std Deviation 44.5 (28.0-62.0) fl RDW Coeff of Joshua 14 (11.0-15.0) % Plt Count 257 (150-400) K/uL MPV 11.20 (7.40-12.00) fL Neut % (Auto) 33.5 L (48.0-80.0) % Lymph % (Auto) 53.5 H (16.0-40.0) % [place] % (Auto) 7.6 (0.0-15.0) % Eos % (Auto) 5.2 (0.0-7.0) % Baso % (Auto) 0.2 (0.0-1.5) % Neut # (Auto) 1.5 (1.4-5.7) K/uL Lymph # (Auto) 2.5 H (0.6-2.4) K/uL [place] # (Auto) 0.4 (0.0-0.8) K/uL Eos # (Auto) 0.2 (0.0-0.7) K/uL Baso # (Auto) 0.0 (0.0-0.1) K/uL Nucleated RBC % 0.0 /100WBC Nucleated RBCs # 0 K/uL INR 0.98 Sodium 141 (136-145) mmol/L Potassium 3.5 (3.5-5.1) mmol/L Chloride 105 (98-107) mmol/L Carbon Dioxide 23.2 (21.0-32.0) mmol/L BUN 18 (7.0-18.0) mg/dL Creatinine 0.9 (0.6-1.0) mg/dL Est Cr Clr Drug Dosing TNP Estimated GFR (MDRD) > 60.0 ml/min Glucose 123 H (74-106) mg/dL Calcium 8.3 L (8.5-10.1) mg/dL Total Bilirubin 0.2 (0.2-1.0) mg/dL AST 28 (15-37) IU/L ALT 61 (14-63) IU/L Alkaline Phosphatase 61 (46-116) U/L Total Protein 7.3 (6.4-8.2) g/dL Albumin 3.5 (3.4-5.0) g/dL Globulin 3.8 (2.6-4.0) g/dL Albumin/Globulin Ratio 0.9 (0.9-1.6) Urine Color Urine Appearance Urine pH (5.0-8.0) Ur Specific [place] (1.001-1.035) Urine Protein (NEGATIVE) mg/dL Urine Glucose (UA) (NEGATIVE) mg/dL Urine Ketones (NEGATIVE) mg/dL Urine Occult Blood (NEGATIVE) Urine Nitrite (NEGATIVE) Urine Bilirubin (NEGATIVE) Urine Urobilinogen (<2.0) EU/dL Ur Leukocyte Esterase (NEGATIVE) Urine RBC (0-2/HPF) Urine WBC (0-5/HPF) Ur Epithelial Cells (NONE-FEW) Urine Bacteria (NEGATIVE) Urine Mucus (NONE-MOD) Urine HCG, Qual (NEGATIVE) 08/13/20 08/13/20 Range/Units 22:30 22:30 WBC (4.0-11.0) K/uL RBC (4.30-5.90) M/uL Hgb (12.0-16.0) g/dL Hct (36.0-46.0) % MCV (80.0-98.0) fL MCH (27.0-32.0) pg MCHC (31.0-37.0) g/dL RDW Std Deviation (28.0-62.0) fl RDW Coeff of Joshua (11.0-15.0) % Plt Count (150-400) K/uL MPV (7.40-12.00) fL Neut % (Auto) (48.0-80.0) % Lymph % (Auto) (16.0-40.0) % [place] % (Auto) (0.0-15.0) % Eos % (Auto) (0.0-7.0) % Baso % (Auto) (0.0-1.5) % Neut # (Auto) (1.4-5.7) K/uL Lymph # (Auto) (0.6-2.4) K/uL [place] # (Auto) (0.0-0.8) K/uL Eos # (Auto) (0.0-0.7) K/uL Baso # (Auto) (0.0-0.1) K/uL Nucleated RBC % /100WBC Nucleated RBCs # K/uL INR Sodium (136-145) mmol/L Potassium (3.5-5.1) mmol/L Chloride (98-107) mmol/L Carbon Dioxide (21.0-32.0) mmol/L BUN (7.0-18.0) mg/dL Creatinine (0.6-1.0) mg/dL Est Cr Clr Drug Dosing Estimated GFR (MDRD) ml/min Glucose (74-106) mg/dL Calcium (8.5-10.1) mg/dL Total Bilirubin (0.2-1.0) mg/dL AST (15-37) IU/L ALT (14-63) IU/L Alkaline Phosphatase (46-116) U/L Total Protein (6.4-8.2) g/dL Albumin (3.4-5.0) g/dL Globulin (2.6-4.0) g/dL Albumin/Globulin Ratio (0.9-1.6) Urine Color YELLOW Urine Appearance HAZY Urine pH 6.0 (5.0-8.0) Ur Specific [place] >= 1.030 (1.001-1.035) Urine Protein NEGATIVE (NEGATIVE) mg/dL Urine Glucose (UA) NEGATIVE (NEGATIVE) mg/dL Urine Ketones NEGATIVE (NEGATIVE) mg/dL Urine Occult Blood MODERATE H (NEGATIVE) Urine Nitrite NEGATIVE (NEGATIVE) Urine Bilirubin NEGATIVE (NEGATIVE) Urine Urobilinogen 0.2 (<2.0) EU/dL Ur Leukocyte Esterase NEGATIVE (NEGATIVE) Urine RBC 1-3 (0-2/HPF) Urine WBC 0-1 (0-5/HPF) Ur Epithelial Cells OCCASIONAL (NONE-FEW) Urine Bacteria RARE (NEGATIVE) Urine Mucus LIGHT (NONE-MOD) Urine HCG, Qual NEGATIVE (NEGATIVE) Meds: Medications Generic Name Dose Route Start Last Admin Trade Name Raymondq PRN Reason Stop Dose Admin Sodium Chloride 10 ml 08/13/20 22:19 08/13/20 22:36 Saline Flush FLUSH 10 ml ASDIRECTED PRN Administration Keep Vein Open Sodium Chloride 2.5 ml 08/13/20 22:19 08/13/20 22:35 Saline Flush FLUSH 2.5 ml ASDIRECTED PRN Administration Keep Vein Open Discontinued Medications Generic Name Dose Route Start Last Admin Trade Name Raymondq PRN Reason Stop Dose Admin Dicyclomine HCl 10 mg 08/14/20 01:23 08/14/20 01:34 Bentyl PO 08/14/20 01:24 10 mg ONETIME ONE Administration Lactated Ringer's 1,000 mls @ 999 mls/hr 08/13/20 22:19 08/13/20 22:32 Ringers, Lactated IV 08/13/20 23:19 999 mls/hr .BOLUS ONE Administration Iopamidol 100 ml 08/14/20 01:51 08/14/20 01:53 Isovue Multipack-370 (76%) IVPUSH 08/14/20 01:52 100 ml ONETIME STA Administration Ketorolac Tromethamine 15 mg 08/13/20 22:19 08/13/20 22:30 Toradol IVPUSH 08/13/20 22:20 15 mg ONETIME ONE Administration - Re-Assessments/Exams Free Text/Narrative Re-Assessment/Exam: 08/14/20 01:23 Patient's pain after IV Toradol is 6/10, will perform CT AP with contrast 08/14/20 02:58 After IV morphine in the ER, her pain improved and is currently stable for discharge. I performed a repeat exam and did not appreciate new abnormal findings. Patient exhibits normal vital signs and has a normal gait on road test. I advised the patient to return to the ER for reevaluation if symptoms worsened, including fever, worsening pain, or any other worrisome symptoms. I instructed the patient to follow up with [facility] within 2-3 days. MEDICAL DECISION MAKING: I reviewed the patients past medical records, lab and radiographic findings. I discussed the case with the patient. My differential diagnosis included: Pelvic inflammatory disease, TOA, ovarian torsion. Ultrasound did not reveal TOA or ovarian torsion. CT abdomen pelvis with contrast demonstrated inflammatory stranding to the left adnexal area consistent with PID. This is consistent with her history of recent intercourse and tampon use. She is afebrile with no leukocytosis and there was no findings of abscess with no nausea or vomiting, I think she is stable for outpatient therapy and follow-up with [facility]. GC chlamydia was sent. Departure - Departure Time of Disposition: 03:00 Disposition: Home, Self-Care 01 Condition: Good Clinical Impression: PID (pelvic inflammatory disease) - Discharge Information *PRESCRIPTION DRUG MONITORING PROGRAM REVIEWED*: Not Applicable *COPY OF PRESCRIPTION DRUG MONITORING REPORT IN PATIENT CASSIA: Not Applicable Prescriptions: Doxycycline Hyclate 100 mg PO BID #28 capsule Naproxen [EC-Naproxen] 500 mg PO BID #10 tablet.dr metroNIDAZOLE [Flagyl] 500 mg PO Q12H #28 tab Instructions: Pelvic Inflammatory Disease Referrals: PCP,None [Primary Care Provider] - Forms: ED Department Discharge Additional Instructions: The need for follow-up, as well as the timing and circumstances, are variable depending upon the specifics of your emergency department visit. If you don't have a primary care physician on staff, we will provide you with a referral. We always advise you to contact your personal physician following an emergency department visit to inform them of the circumstance of the visit and for follow-up with them and/or the need for any referrals to a consulting specialist. The emergency department will also refer you to a specialist when appropriate. This referral assures that you have the opportunity for follow-up care with a specialist. All of these measure are taken in an effort to provide you with optimal care, which includes your follow-up. Under all circumstances we always encourage you to contact your private physician who remains a resource for coordinating your care. When calling for follow-up care, please make the office aware that this follow-up is from your recent emergency room visit. If for any reason you are refused follow-up, please contact the [facility] Emergency Department at and asked to speak to the emergency department charge nurse. If you do not have a primary care doctor, please follow up with the clinics below within 3-5 days. [facility] [address] [place] [id number] [facility] [address] [place] [id number] [facility] [address] [place] [id number] [facility] [address] [place] [id number] Sepsis Event Note (ED) - Evaluation Sepsis Screening Result: No Definite Risk - Focused Exam Vital Signs: Vital Signs Temp Pulse Resp BP Pulse Ox 08/14/20 02:42 98 F 66 16 126/57 L 99 08/13/20 22:04 96.6 F L 69 18 119/68 98 - My Orders Last 24 Hours: My Active Orders 08/13/20 22:19 Sodium Chloride 0.9% [Saline Flush] 10 ml FLUSH ASDIRECTED PRN Sodium Chloride 0.9% [Saline Flush] 2.5 ml FLUSH ASDIRECTED PRN Saline Lock Insert [OM.PC] Stat 08/14/20 02:46 CHLAMYDIA AND GONORRHEA BY [facility] Stat - Assessment/Plan Last 24 Hours: My Active Orders 08/13/20 22:19 Sodium Chloride 0.9% [Saline Flush] 10 ml FLUSH ASDIRECTED PRN Sodium Chloride 0.9% [Saline Flush] 2.5 ml FLUSH ASDIRECTED PRN Saline Lock Insert [OM.PC] Stat 08/14/20 02:46 CHLAMYDIA AND GONORRHEA BY [facility] Stat
[2020-08-13 22:55] LABS: BLOOD UREA NITROGEN,BUN 18 mg/dL (7.0-18.0); CARBON DIOXIDE,CO2 23.2 mmol/L (21.0-32.0); CHLORIDE,CL 105 mmol/L (98-107); GLUCOSE RANDOM 123 mg/dL (74-106); POTASSIUM,K 3.5 mmol/L (3.5-5.1); SODIUM,NA 141 mmol/L (136-145)
--- NOTE | 2020-08-14 00:29 | US ---
INDICATION: Left adnexal pain. Currently having vaginal bleeding as part of menstrual cycle. COMPARISON: None available. FINDINGS: Transvaginal ultrasound examination of the female pelvis was performed. The uterus is anteverted with no evidence of mass. It measures 8.7 x 6.4 x 5.0 cm. The endometrial lining is normal in thickness at 6 mm. The ovaries are normal in appearance, the right measuring 4.0 x 1.8 x 3.4 cm and the left measuring 3.1 x 1.8 x 4.1 cm. There is normal color and pulse doppler flow in both ovaries. There is no sign of free fluid in the pelvis. IMPRESSION: Normal ultrasound examination of the female pelvis using transvaginal technique. Dictated by Mykel Holliday MD @ Aug 14 2020 12:25AM Signed by Dr. Mykel Holliday @ Aug 14 2020 12:28AM
[2020-08-14] MEDS ORDERED: Dicyclomine 10 MG Cap PO ONE (01:23)
[2020-08-14] MEDS ORDERED: Iopamidol 755 MG/ML 500 ML Multipack Bottle IVPUSH STA (01:51)
--- NOTE | 2020-08-14 02:26 | CT ---
INDICATION: Left-sided abdominal pain. COMPARISON: None available TECHNIQUE: CT examination of the abdomen and pelvis was performed with the uneventful intravenous administration of 100 cc of Isovue 370 while 3 mm thick axial sections were obtained from the lung bases through the pubic symphysis. Oral contrast was not administered. Please note that all CT scans at this facility use dose modulation, iterative reconstruction, and/or weight-based dosing when appropriate to reduce radiation dose to as low as reasonably achievable. FINDINGS: In the abdomen, the liver is low in density, representing fatty infiltration. There is no sign of mass. The spleen, pancreas and adrenals are normal in appearance. The kidneys are normal in appearance. The gallbladder is normal in appearance. The abdominal aorta is normal in caliber with no sign of dilatation. There is no sign of retroperitoneal mass or adenopathy. The stomach, loops of small bowel, and colon in the abdomen are normal in appearance. There is a small fat containing periumbilical hernia. In the pelvis, the appendix is normal in appearance with no sign of inflammatory process. The loops of small bowel and colon in the pelvis are normal in appearance. The left adnexal region has a small amount of inflammatory stranding laterally, nonspecific. The left ovary is otherwise normal in appearance. This is immediately adjacent to the superior sigmoid colon, but there is no sign of any abnormality of the sigmoid colon to suggest that the inflammatory process arises from the colon. There is a very tiny amount of free fluid in the right pelvis. The right ovary and uterus are normal in appearance. A tampon is seen in the vagina. The urinary bladder is normal in appearance. There is no sign of pelvic or inguinal mass or adenopathy. There is no sign of free air or free fluid in the abdomen. There is no sign of any free air or extraluminal air in the pelvis. The lung bases are clear. The osseous structures are normal in appearance for the patient`s age. IMPRESSION: Normal CT of the abdomen with contrast. CT of the pelvis shows mild inflammatory stranding located lateral to the left ovary of uncertain etiology. This is adjacent to the proximal sigmoid colon, but there is no sign of any bowel wall thickening to suggest that this inflammatory process arises from the colon. There is a very tiny amount of free fluid in the right pelvis. Suggest correlation with ultrasound of the pelvis. Please note that all CT scans at this facility use dose modulation, iterative reconstruction, and/or weight-based dosing when appropriate to reduce radiation dose to as low as reasonably achievable. Dictated by Mykel Holliday MD @ Aug 14 2020 2:19AM Signed by Dr. Mykel Holliday @ Aug 14 2020 2:25AM
[2020-08-14 02:43] VITALS: PULSE 66
[2020-08-14] MEDS ORDERED: cefTRIAXone 1 GM in Premix Bag 1 BAG IV ONE (03:03)
[2020-08-14 04:14] VITALS: BP 128/79
[2020-08-15 13:03] LABS: C.TRACHOMATIS BY TMA Negative (Negative); N.GONORRHOEAE BY TMA Negative (Negative)
== END 2020-08-14 04:01 | disposition home or self-care (01) ==
LOC: MW.ED 21:36
DX: N73.9 Female pelvic inflammatory disease, unspecified (principal); E66.9 Obesity, unspecified; Z88.1 Allergy status to other antibiotic agents; Z88.0 Allergy status to penicillin
CPT/HCPCS: 36415; 74177; 76830; 80053; 81001; 81025; 85025; 85610; 87491; 87591; 96365; 96375; 99284; A9270; J0696; J1885; J7120; Q9967; 99283

== ENCOUNTER 2021-12-13 15:39 | Emergency (ER) | payer OTHER ==
[2021-12-13] MEDS ORDERED: Morphine 4 MG/ML VIAL IM ONE (20:11)
[2021-12-13] MEDS ORDERED: Bacitracin/Neomycin/Polymyxin B Oint 28.4 GM Tube TOP ONE (20:11)
[2021-12-13] MEDS ORDERED: Ondansetron 4 MG Tab.DIS PO ONE (20:12)
[2021-12-13] MEDS ORDERED: Doxycycline 100 MG Cap PO ONE (20:14)
[2021-12-13 22:35] VITALS: BP 125/68; PULSE 98
== END 2021-12-13 21:42 | disposition home or self-care (01) ==
LOC: MW.ED 15:39
DX: T21.11XA Burn of first degree of chest wall, initial encounter (principal); T21.15XA Burn of first degree of buttock, initial encounter; T31.0 Burns involving less than 10% of body surface; Y26.XXXA Exposure to smoke, fire and flames, undetermined intent, initial encounter
CPT/HCPCS: 96372; 99283; A9270; J2270